=== PATIENT | male | born 1975 | race Caucasian/White ===

== ENCOUNTER 2018-05-06 18:17 | Inpatient (IN) | payer MEDICAID ==
[~2018-05-06] VITALS: Ht 167.6 cm; Wt 98.0 kg
[~2018-05-06 18:17] MED LIST: FURO20TA4 PO; LEVO50TA8 PO; LISI10TA5 PO; NIFE30TA94 PO
[2018-05-06] MEDS ORDERED: ONDANSETRON HCL 4MG/2ML INJ IV STA (19:08)
[2018-05-06] MEDS ORDERED: MORPHINE SULFATE 4 MG/ML CPJ (NOT FOR IM USE) IV STA (19:08)
[2018-05-06] MEDS ORDERED: SODIUM CHLORIDE 0.9% 1000ML BAG (SEPSIS BOLUS) IV ONE (19:15)
[2018-05-06] MEDS ORDERED: CLINDAMYCIN 600 MG in DEXTROSE 5% WATER 50 ML IV ONE (19:15)
[2018-05-06] MEDS ORDERED: CLONIDINE 0.2MG TABLET PO ONE (19:15)
[2018-05-06 19:36] LABS: BASOPHILS % 0.6 % (0.0-2.0); EOSINOPHILS % 2.4 % (0.0-5.0); HEMATOCRIT. 29.2 % (42.0-52.0); HEMOGLOBIN. 9.6 g/dL (14.0-18.0); LYMPHOCYTES % 7.5 % (20.0-50.0); MEAN CORPUSCULAR HEMOGLOBIN 30.7 pg (28.0-32.0); MEAN CORPUSCULAR VOLUME 93.3 fL (80.0-94.0); MEAN PLATELET VOLUME 7.5 fl (7.4-10.4); MONOCYTES % 8.1 % (2.0-8.0); NEUTROPHILS % 81.4 % (40.0-76.0); PLATELET 298 x1000/uL (130-400); RED BLOOD CELL COUNT 3.12 mill/uL (4.7-6.1); RED CELL DISTRIBUTION WIDTH 13.9 % (11.6-14.6)
[2018-05-06 19:42] LABS: CHLORIDE 98 mEq/L (98-107)
[2018-05-06 19:44] LABS: INR 1.2; PROTHROMBIN TIME 11.7 sec (9.1-11.1)
[2018-05-07] MEDS: MORPHINE SULFATE 4 MG/ML CPJ (NOT FOR IM USE) IV PRN ×4 (03:44→18:45)
[2018-05-07 04:00] VITALS: BP 146/64
[2018-05-07 09:14] LABS: BASOPHILS % 0.7 % (0.0-2.0); EOSINOPHILS % 2.6 % (0.0-5.0); HEMATOCRIT. 25.4 % (42.0-52.0); HEMOGLOBIN. 8.4 g/dL (14.0-18.0); LYMPHOCYTES % 9.8 % (20.0-50.0); MEAN CORPUSCULAR HEMOGLOBIN 31.2 pg (28.0-32.0); MEAN CORPUSCULAR VOLUME 94.1 fL (80.0-94.0); MEAN PLATELET VOLUME 7.6 fl (7.4-10.4); MONOCYTES % 7.5 % (2.0-8.0); NEUTROPHILS % 79.4 % (40.0-76.0); PLATELET 240 x1000/uL (130-400); RED BLOOD CELL COUNT 2.69 mill/uL (4.7-6.1); RED CELL DISTRIBUTION WIDTH 13.8 % (11.6-14.6)
[2018-05-07] MEDS ORDERED: DEXTROSE 50% WATER 50ML SYRINGE IV PRN (09:30)
[2018-05-07] MEDS ORDERED: CLONIDINE 0.1MG TABLET PO PRN (10:15)
[2018-05-07] MEDS: INSULIN LISPRO 100 UNITS/ML SUBCUT SCH ×3 (10:32→20:46)
[2018-05-07 12:00] VITALS: BP 153/62
[2018-05-07] MEDS: BLOOD SUGAR DIAGNOSTIC STRIP TEST SCH ×3 (12:20→20:46)
[2018-05-07] MEDS: LEVOTHYROXINE SODIUM 50MCG TABLET PO SCH (12:36)
[2018-05-07] MEDS: NIFEDIPINE XL 30MG TAB PO SCH (12:37)
[2018-05-07] MEDS: SEVELAMER CARBONATE 800 MG TABLET PO SCH ×2 (12:37→18:44)
[2018-05-07 14:59] LABS: CLARITY URINE CLEAR (CLEAR); COLOR URINE YELLOW (YELLOW); KETONES URINE NEGATIVE (NEGATIVE); LEUKOCYTE ESTERASE URINE NEGATIVE (NEGATIVE); NITRITE URINE NEGATIVE (NEGATIVE); OCCULT BLOOD URINE TRACE (NEGATIVE); PROTEIN URINE 4+ (NEGATIVE); SPECIFIC GRAVITY URINE 1.016 (1.005-1.030); UROBILINOGEN URINE 0.2 E.U./dL (0.2-1.0)
[2018-05-07 15:41] LABS: OPIATES URINE SCREEN PRESUMTIVE POSITIVE (NEGATIVE); PHENCYCLIDINE URINE SCREEN NEGATIVE (NEGATIVE)
[2018-05-07 15:42] LABS: *AMPHETAMINES SCREEN URINE NEGATIVE (NEGATIVE); *BARBITURATES SCREEN URINE NEGATIVE (NEGATIVE); *BENZODIAZEPINES SCREEN URINE NEGATIVE (NEGATIVE); *COCAINE SCREEN URINE NEGATIVE (NEGATIVE); CANNABINOID URINE SCREEN NEGATIVE (NEGATIVE); METHADONE URINE SCREEN NEGATIVE (NEGATIVE)
[2018-05-07 16:00] VITALS: BP 149/65
[2018-05-07] MEDS ORDERED: PIPERACILLIN/TAZOBACTAM 3.375GM/50ML PREMIX IV ONE (17:45)
[2018-05-07] MEDS ORDERED: LEVAQUIN XX SCH (18:45)
[2018-05-07 20:00] VITALS: BP 148/62
[2018-05-07] MEDS ORDERED: LEVOFLOXACIN 750MG PREMIX 150 ML IV NR (21:00)
[2018-05-07] MEDS: INSULIN GLARGINE UD 100 UNITS/ML SYR SUBCUT SCH (21:53)
[2018-05-08] VITALS: BP 135/58
[2018-05-08] MEDS: MORPHINE SULFATE 4 MG/ML CPJ (NOT FOR IM USE) IV PRN ×3 (00:22→20:20)
[2018-05-08] MEDS: SODIUM CHLORIDE 0.9% 1,000 ML IV NR (01:44)
[2018-05-08 04:00] VITALS: BP 133/62
[2018-05-08 06:39] LABS: BASOPHILS % 0.3 % (0.0-2.0); EOSINOPHILS % 1.8 % (0.0-5.0); HEMATOCRIT. 25.6 % (42.0-52.0); HEMOGLOBIN. 8.7 g/dL (14.0-18.0); MEAN CORPUSCULAR HEMOGLOBIN 31.5 pg (28.0-32.0); MEAN CORPUSCULAR VOLUME 92.8 fL (80.0-94.0); MEAN PLATELET VOLUME 7.6 fl (7.4-10.4); MONOCYTES % 7.6 % (2.0-8.0); NEUTROPHILS % 83.3 % (40.0-76.0); PLATELET 268 x1000/uL (130-400); RED BLOOD CELL COUNT 2.76 mill/uL (4.7-6.1)
[2018-05-08] MEDS: BLOOD SUGAR DIAGNOSTIC STRIP TEST SCH ×4 (06:53→21:44)
[2018-05-08] MEDS: INSULIN LISPRO 100 UNITS/ML SUBCUT SCH ×4 (07:24→21:00)
[2018-05-08 07:57] LABS: PHOSPHORUS 6.6 mg/dL (2.5-4.9)
[2018-05-08 08:00] VITALS: BP 125/59
[2018-05-08] MEDS: SEVELAMER CARBONATE 800 MG TABLET PO SCH ×3 (08:25→18:44)
[2018-05-08] MEDS: FOLIC ACID/VITAMIN B COMP W-C TABLET PO SCH (08:25)
[2018-05-08] MEDS: LEVOTHYROXINE SODIUM 50MCG TABLET PO SCH (08:25)
[2018-05-08] MEDS: LISINOPRIL 20MG TABLET PO SCH (08:26)
[2018-05-08] MEDS: NIFEDIPINE XL 30MG TAB PO SCH (08:26)
[2018-05-08 12:00] VITALS: BP 123/57
[2018-05-08 16:00] VITALS: BP 136/72
[2018-05-08 20:00] VITALS: BP 126/60
[2018-05-08] MEDS: INSULIN GLARGINE UD 100 UNITS/ML SYR SUBCUT SCH (21:45)
[2018-05-08] MEDS: TEMAZEPAM 15MG CAPSULE PO PRN (21:46)
[2018-05-08] MEDS: EPOETIN ALFA 4000UNITS/ML VIAL SUBCUT SCH (21:47)
[2018-05-09] VITALS: BP 148/71
[2018-05-09] MEDS: MORPHINE SULFATE 4 MG/ML CPJ (NOT FOR IM USE) IV PRN ×3 (01:26→23:05)
[2018-05-09 04:00] VITALS: BP 146/86
[2018-05-09 06:04] LABS: BASOPHILS % 0.4 % (0.0-2.0); HEMATOCRIT. 26.4 % (42.0-52.0); HEMOGLOBIN. 8.8 g/dL (14.0-18.0); LYMPHOCYTES % 7.4 % (20.0-50.0); MEAN CORPUSCULAR VOLUME 92.6 fL (80.0-94.0); MEAN PLATELET VOLUME 7.4 fl (7.4-10.4); MONOCYTES % 9.1 % (2.0-8.0); NEUTROPHILS % 81.1 % (40.0-76.0); PLATELET 255 x1000/uL (130-400); RED BLOOD CELL COUNT 2.85 mill/uL (4.7-6.1); RED CELL DISTRIBUTION WIDTH 13.9 % (11.6-14.6)
[2018-05-09] MEDS: SODIUM CHLORIDE 0.9% 1,000 ML IV NR (06:52)
[2018-05-09] MEDS: BLOOD SUGAR DIAGNOSTIC STRIP TEST SCH ×4 (06:55→21:05)
[2018-05-09] MEDS: INSULIN LISPRO 100 UNITS/ML SUBCUT SCH ×4 (06:55→21:05)
[2018-05-09] MEDS: LEVOTHYROXINE SODIUM 50MCG TABLET PO SCH (07:40)
[2018-05-09 08:00] VITALS: BP 140/63
[2018-05-09] MEDS: SEVELAMER CARBONATE 800 MG TABLET PO SCH ×3 (08:10→18:47)
[2018-05-09] MEDS: LISINOPRIL 20MG TABLET PO SCH (09:00)
[2018-05-09] MEDS: FOLIC ACID/VITAMIN B COMP W-C TABLET PO SCH (09:00)
[2018-05-09] MEDS: NIFEDIPINE XL 30MG TAB PO SCH (09:00)
[2018-05-09] MEDS ORDERED: GENTAMICIN SULF 40MG/ML 2ML VIAL ONE (10:01)
[2018-05-09] MEDS ORDERED: LIDOCAINE HCL 1% 10 MG/ML 10ML VIAL ONE (10:03)
[2018-05-09] MEDS ORDERED: BUPIVACAINE HCL/PF 0.5% (5MG/ML) 10ML ONE (10:03)
[2018-05-09] MEDS ORDERED: BACITRACIN 50,000 UNITS/VIAL ONE ×2 (10:03→10:51)
[2018-05-09] MEDS ORDERED: ONDANSETRON HCL 4MG/2ML INJ IV PRN (10:15)
[2018-05-09] MEDS ORDERED: MEPERIDINE HCL/PF 25MG/ML CPJ IV PRN (10:15)
[2018-05-09] MEDS ORDERED: HYDROMORPHONE HCL/PF 2MG/ML CPJ IV PRN (10:15)
[2018-05-09] MEDS ORDERED: FENTANYL CITRATE/PF 50MCG/ML 2ML VIAL ONE (10:15)
[2018-05-09] MEDS ORDERED: PROPOFOL 200MG/20ML VIAL IV ONE (10:15)
[2018-05-09] MEDS ORDERED: LABETALOL 5MG/ML SYR 20 MG/4 ML SYRINGE IV PRN (10:15)
[2018-05-09] MEDS ORDERED: MIDAZOLAM HCL 2 MG/2 ML VIAL ONE (10:16)
[2018-05-09] MEDS ORDERED: DEXAMETHASONE 4MG/ML 1ML VIAL ONE (10:16)
[2018-05-09] MEDS ORDERED: ONDANSETRON HCL 4MG/2ML INJ ONE (10:16)
[2018-05-09] MEDS ORDERED: LIDOCAINE HCL/PF 1% 10 MG/ML 5ML VIAL ONE ×2 (10:25→11:11)
[2018-05-09] MEDS ORDERED: NORMAL SALINE 0.9% 10 ML SYR ONE (10:51)
[2018-05-09] MEDS ORDERED: EPHEDRINE SULFATE 50MG/ML VIAL ONE (11:11)
[2018-05-09] MEDS ORDERED: CEFAZOLIN SODIUM 1000MG/VIAL ONE (11:11)
[2018-05-09] MEDS ORDERED: SODIUM CHLORIDE 0.9% 10ML VIAL ONE (11:11)
[2018-05-09] MEDS: LEVOFLOXACIN 250MG PREMIX 50 ML IV SCH (14:00)
[2018-05-09 16:00] VITALS: BP 131/61
[2018-05-09] MEDS ORDERED: LEVOFLOXACIN 500MG PREMIX 100 ML IV SCH (18:00)
[2018-05-09 20:00] VITALS: BP 161/88
[2018-05-09] MEDS: INSULIN GLARGINE UD 100 UNITS/ML SYR SUBCUT SCH (21:04)
[2018-05-10] VITALS: BP 151/77
[2018-05-10] MEDS ORDERED: VANCOMYCIN 1500MG in DEXTROSE 5% WATER 250ML IV NR (01:00)
[2018-05-10] MEDS: MORPHINE SULFATE 4 MG/ML CPJ (NOT FOR IM USE) IV PRN ×3 (03:59→20:17)
[2018-05-10 04:00] VITALS: BP 146/65
[2018-05-10] MEDS: LEVOTHYROXINE SODIUM 50MCG TABLET PO SCH (06:50)
[2018-05-10] MEDS: BLOOD SUGAR DIAGNOSTIC STRIP TEST SCH ×4 (06:51→20:34)
[2018-05-10 08:00] VITALS: BP 150/72
[2018-05-10] MEDS: FOLIC ACID/VITAMIN B COMP W-C TABLET PO SCH (08:39)
[2018-05-10] MEDS: NIFEDIPINE XL 30MG TAB PO SCH (08:39)
[2018-05-10] MEDS: SEVELAMER CARBONATE 800 MG TABLET PO SCH ×3 (08:40→18:19)
[2018-05-10] MEDS: INSULIN LISPRO 100 UNITS/ML SUBCUT SCH ×4 (08:44→20:32)
[2018-05-10] MEDS: LISINOPRIL 20MG TABLET PO SCH (08:46)
[2018-05-10 12:00] VITALS: BP 150/64
[2018-05-10 16:00] VITALS: BP 153/75
[2018-05-10 20:00] VITALS: BP 124/69
[2018-05-10] MEDS: EPOETIN ALFA 4000UNITS/ML VIAL SUBCUT SCH (20:14)
[2018-05-10] MEDS: TEMAZEPAM 15MG CAPSULE PO PRN (23:17)
[2018-05-10] MEDS: INSULIN GLARGINE UD 100 UNITS/ML SYR SUBCUT SCH (23:57)
[2018-05-11] VITALS: BP 132/76
[2018-05-11] MEDS: MORPHINE SULFATE 4 MG/ML CPJ (NOT FOR IM USE) IV PRN ×2 (02:51→08:27)
[2018-05-11 03:59] VITALS: BP 130/76
[2018-05-11] MEDS: LEVOTHYROXINE SODIUM 50MCG TABLET PO SCH (06:50)
[2018-05-11] MEDS: BLOOD SUGAR DIAGNOSTIC STRIP TEST SCH ×2 (07:00→12:22)
[2018-05-11 08:00] VITALS: BP 140/72
[2018-05-11] MEDS: NIFEDIPINE XL 30MG TAB PO SCH (08:25)
[2018-05-11] MEDS: SEVELAMER CARBONATE 800 MG TABLET PO SCH (08:26)
[2018-05-11] MEDS: LISINOPRIL 20MG TABLET PO SCH (08:26)
[2018-05-11] MEDS: FOLIC ACID/VITAMIN B COMP W-C TABLET PO SCH (08:26)
[2018-05-11] MEDS: INSULIN LISPRO 100 UNITS/ML SUBCUT SCH ×2 (08:49→13:37)
[2018-05-11] MEDS: LEVOFLOXACIN 250MG PREMIX 50 ML IV SCH (11:53)
[2018-05-11 12:58] VITALS: BP 123/61
[2018-05-11] MEDS ORDERED: VANCOMYCIN 1 G PREMIX 200 ML IV SCH (13:00)
== END 2018-05-11 14:12 | disposition home health service (06) | DRG 710 ==
LOC: ER 18:17 → 5WST 20:39 → EDBEDREQ 20:42 → CANRESERV 22:47 → ENRESERV 22:47 → 7WST 05-07 00:08
PROVIDERS: ADMIT Internal Medicine; ATTEND Internal Medicine
PROC: 5A1D70Z Performance of Urinary Filtration, Intermittent, Less than 6 Hours Per Day (ICD-10-PCS; 2018-05-08)
PROC: 0Y6M0ZB Detachment at Right Foot, Partial 2nd Ray, Open Approach (ICD-10-PCS; 2018-05-09)
PROC: 0Y6M0ZC Detachment at Right Foot, Partial 3rd Ray, Open Approach (ICD-10-PCS; 2018-05-09)
PROC: 0Y6M0ZD Detachment at Right Foot, Partial 4th Ray, Open Approach (ICD-10-PCS; 2018-05-09)
PROC: 0Y9M0ZZ Drainage of Right Foot, Open Approach (ICD-10-PCS; 2018-05-09)
PROC: 0JDQ0ZZ Extraction of Right Foot Subcutaneous Tissue and Fascia, Open Approach (ICD-10-PCS; 2018-05-09)
PROC: 0Y6M0Z9 Detachment at Right Foot, Partial 1st Ray, Open Approach (ICD-10-PCS; principal; 2018-05-09 12:00)
PROC: 5A1D70Z Performance of Urinary Filtration, Intermittent, Less than 6 Hours Per Day (ICD-10-PCS; 2018-05-10)
DX: A41.9 Sepsis, unspecified organism (principal); E43 Unspecified severe protein-calorie malnutrition; A48.0 Gas gangrene; E11.22 Type 2 diabetes mellitus with diabetic chronic kidney disease; E11.40 Type 2 diabetes mellitus with diabetic neuropathy, unspecified; L02.611 Cutaneous abscess of right foot; T25.021A Burn of unspecified degree of right foot, initial encounter; N18.6 End stage renal disease; D63.8 Anemia in other chronic diseases classified elsewhere; E03.9 Hypothyroidism, unspecified; E11.52 Type 2 diabetes mellitus with diabetic peripheral angiopathy with gangrene; E78.5 Hyperlipidemia, unspecified; N25.81 Secondary hyperparathyroidism of renal origin; E11.621 Type 2 diabetes mellitus with foot ulcer; E11.69 Type 2 diabetes mellitus with other specified complication; I12.0 Hypertensive chronic kidney disease with stage 5 chronic kidney disease or end stage renal disease; B95.2 Enterococcus as the cause of diseases classified elsewhere; M86.8X7 Other osteomyelitis, ankle and foot; L97.519 Non-pressure chronic ulcer of other part of right foot with unspecified severity; Z99.2 Dependence on renal dialysis; Z79.4 Long term (current) use of insulin; Z87.891 Personal history of nicotine dependence; Z89.432 Acquired absence of left foot; Z91.19 Patient's noncompliance with other medical treatment and regimen; Z95.820 Peripheral vascular angioplasty status with implants and grafts; Z88.1 Allergy status to other antibiotic agents; X19.XXXA Contact with other heat and hot substances, initial encounter; Y93.89 Activity, other specified; Y92.89 Other specified places as the place of occurrence of the external cause; Y99.8 Other external cause status; Z89.421 Acquired absence of other right toe(s)
CPT/HCPCS: 36415; 71045; 73620; 73630; 80048; 80053; 80202; 80305; 81003; 82962; 83036; 83605; 83735; 84100; 85025; 85610; 85730; 87040; 87070; 87075; 87077; 87186; 87205; 88305; 88311; 93005; 93923; 96365; 96375; 97110; 97116; 97162; 97535; 99285; A4216; J0690; J0885; J1100; J1580; J1815; J1956; J2250; J2270; J2405; J2704; J3010; J3370; J3490; J7030; J7050; J7060

== ENCOUNTER 2018-07-03 11:57 | Inpatient (IN) | payer MEDICARE, MEDICAID ==
[2018-07-03] VITALS (8 sets, daily range): BP systolic 110–180; BP diastolic 53–103
[~2018-07-03] VITALS: Ht 167.6 cm; Wt 103.9 kg
[2018-07-03] MEDS ORDERED: LIDOCAINE HCL 1% 20ML VIAL (Pyxis) INJ ONE ×2 (13:10→13:42)
[2018-07-03] MEDS ORDERED: FENTANYL CITRATE/PF 50MCG/ML 2ML VIAL ONE (13:11)
[2018-07-03] MEDS ORDERED: IODIXANOL 320MG/ML 100 ML BOTTLE IV ONE (13:11)
[2018-07-03] MEDS ORDERED: IOHEXOL-300 100 ML BOTTLE ONE (13:11)
[2018-07-03] MEDS ORDERED: MIDAZOLAM HCL 2 MG/2 ML VIAL ONE (13:11)
[2018-07-03] MEDS ORDERED: ASPIRIN/SOD BICARB/CITRIC ACID 324MG TAB EFF ONE (13:12)
[2018-07-03 13:52] LABS: BASOPHILS % 0.9 % (0.0-2.0); HEMATOCRIT. 30.6 % (42.0-52.0); HEMOGLOBIN. 10.3 g/dL (14.0-18.0); LYMPHOCYTES % 11.7 % (20.0-50.0); MEAN CORPUSCULAR HEMOGLOBIN 32.1 pg (28.0-32.0); MEAN CORPUSCULAR VOLUME 95.1 fL (80.0-94.0); MEAN PLATELET VOLUME 8.2 fl (7.4-10.4); MONOCYTES % 6.3 % (2.0-8.0); NEUTROPHILS % 78.1 % (40.0-76.0); PLATELET 236 x1000/uL (130-400); RED BLOOD CELL COUNT 3.22 mill/uL (4.7-6.1); RED CELL DISTRIBUTION WIDTH 13.6 % (11.6-14.6)
[2018-07-03 14:04] LABS: INR 1.1; PARTIAL THROMBOPLASTIN TIME 33.6 sec (23.4-31.0); PROTHROMBIN TIME 10.6 sec (9.1-11.1)
[2018-07-03] MEDS ORDERED: HEPARIN SODIUM 1,000 UNIT/1ML VIAL IV ONE (14:08)
[2018-07-03] MEDS ORDERED: ONDANSETRON HCL 4MG/2ML INJ IV PRN (15:00)
[2018-07-03] MEDS ORDERED: ACETAMINOPHEN 325MG TABLET PO PRN (15:00)
[2018-07-03] MEDS ORDERED: DEXTROSE 50% WATER 50ML SYRINGE IV PRN (15:00)
[2018-07-03] MEDS ORDERED: MORPHINE SULFATE 4 MG/ML CPJ (NOT FOR IM USE) IV PRN (15:00)
[2018-07-03] MEDS ORDERED: CLOPIDOGREL 75MG TABLET PO NR (15:00)
[2018-07-03] MEDS ORDERED: ATROPINE SULFATE 1MG/10ML SYR IV PRN (15:00)
[2018-07-03] MEDS ORDERED: CLOPIDOGREL 75MG TABLET ONE (15:10)
[2018-07-03] MEDS: BLOOD SUGAR DIAGNOSTIC STRIP TEST SCH ×2 (16:40→21:06)
[2018-07-03] MEDS: INSULIN LISPRO 100 UNITS/ML SUBCUT SCH ×2 (16:40→21:00)
[2018-07-03] MEDS: AMLODIPINE 5MG TABLET PO SCH ×2 (17:07→21:06)
[2018-07-03] MEDS: LISINOPRIL 10MG TABLET PO SCH (21:05)
[2018-07-03] MEDS: MORPHINE SULFATE 4 MG/ML CPJ (NOT FOR IM USE) IV PRN (21:07)
[2018-07-04] VITALS (8 sets, daily range): BP systolic 122–145; BP diastolic 28–79
[2018-07-04] MEDS: MORPHINE SULFATE 4 MG/ML CPJ (NOT FOR IM USE) IV PRN ×2 (01:40→08:18)
[2018-07-04 05:47] LABS: HEMATOCRIT. 27.3 % (42.0-52.0); HEMOGLOBIN. 9.4 g/dL (14.0-18.0); MEAN CORPUSCULAR HEMOGLOBIN 32.9 pg (28.0-32.0); MEAN CORPUSCULAR VOLUME 95.2 fL (80.0-94.0); MEAN PLATELET VOLUME 8.2 fl (7.4-10.4); PLATELET 198 x1000/uL (130-400); RED BLOOD CELL COUNT 2.86 mill/uL (4.7-6.1); RED CELL DISTRIBUTION WIDTH 14.2 % (11.6-14.6)
[2018-07-04 06:51] LABS: PLATELET ESTIMATE NORMAL
[2018-07-04] MEDS: BLOOD SUGAR DIAGNOSTIC STRIP TEST SCH ×2 (06:52→11:51)
[2018-07-04] MEDS: INSULIN LISPRO 100 UNITS/ML SUBCUT SCH (07:20)
[2018-07-04] MEDS: AMLODIPINE 5MG TABLET PO SCH (08:16)
[2018-07-04] MEDS: LISINOPRIL 10MG TABLET PO SCH (08:17)
[2018-07-04] MEDS ORDERED: ASPIRIN 325MG TABLET PO SCH (09:00)
[2018-07-04] MEDS ORDERED: CLOPIDOGREL 75MG TABLET PO SCH (09:00)
== END 2018-07-04 12:40 | disposition home or self-care (01) | DRG 252 ==
LOC: CCL 11:57 → 3WST 11:58
PROVIDERS: ADMIT Specialist; ATTEND Specialist
PROC: 047 Lower Arteries, Dilation (ICD-10-PCS; principal; 2018-07-03)
PROC: B41G1ZZ Fluoroscopy of Left Lower Extremity Arteries using Low Osmolar Contrast (ICD-10-PCS; 2018-07-03)
DX: E11.51 Type 2 diabetes mellitus with diabetic peripheral angiopathy without gangrene (principal); N18.6 End stage renal disease; I12.0 Hypertensive chronic kidney disease with stage 5 chronic kidney disease or end stage renal disease; N25.81 Secondary hyperparathyroidism of renal origin; D64.9 Anemia, unspecified; E03.9 Hypothyroidism, unspecified; E11.21 Type 2 diabetes mellitus with diabetic nephropathy; E11.22 Type 2 diabetes mellitus with diabetic chronic kidney disease; E11.40 Type 2 diabetes mellitus with diabetic neuropathy, unspecified; E66.9 Obesity, unspecified; E78.5 Hyperlipidemia, unspecified; Z79.02 Long term (current) use of antithrombotics/antiplatelets; Z79.4 Long term (current) use of insulin; Z89.432 Acquired absence of left foot; Z99.2 Dependence on renal dialysis; Z68.37 Body mass index [BMI] 37.0-37.9, adult
CPT/HCPCS: 36415; 37230; 37234; 75710; 80048; 82962; 85347; 93005; C1725; C1726; C1769; C1874; C1887; C1893; C1894; J1644; J1815; J2250; J2270; J3010; J3490; Q9967

== ENCOUNTER 2019-01-29 08:16 | Inpatient (IN) | payer MEDICARE, MEDICAID ==
[~2019-01-29] VITALS: Ht 167.6 cm; Wt 107.5 kg
[2019-01-29] VITALS (15 sets, daily range): BP systolic 105–156; BP diastolic 53–83
[2019-01-29] MEDS ORDERED: LIDOCAINE HCL 1% 20ML VIAL (Pyxis) INJ ONE (08:55)
[2019-01-29] MEDS ORDERED: ASPIRIN/SOD BICARB/CITRIC ACID 324MG TAB EFF ONE (08:55)
[2019-01-29] MEDS ORDERED: IODIXANOL 320MG/ML 100 ML BOTTLE IV ONE ×2 (08:55→10:37)
[2019-01-29] MEDS ORDERED: FENTANYL CITRATE/PF 50MCG/ML 2ML VIAL ONE ×2 (09:20→10:10)
[2019-01-29] MEDS ORDERED: MIDAZOLAM HCL 2 MG/2 ML VIAL ONE ×2 (09:20→10:10)
[2019-01-29] MEDS ORDERED: SEVE800T8 PO (09:25)
[2019-01-29] MEDS ORDERED: CLOP75TA4 PO (09:25)
[2019-01-29] MEDS ORDERED: ATOR10TA PO (09:25)
[2019-01-29] MEDS ORDERED: ASPI-1158 PO (09:25)
[2019-01-29] MEDS ORDERED: INSU100I28 SQ (09:25)
[2019-01-29] MEDS ORDERED: INSHUMSS SUBCUT (09:27)
[2019-01-29 09:57] LABS: INR 1.1; PARTIAL THROMBOPLASTIN TIME 31.1 sec (23.4-31.0)
[2019-01-29] MEDS ORDERED: IOHEXOL-300 100 ML BOTTLE ONE (10:01)
[2019-01-29 10:07] LABS: HEMATOCRIT 35.4 % (42.0-52.0); MEAN CORPUSCULAR HEMOGLOBIN 32.1 pg (28.0-32.0); MEAN CORPUSCULAR VOLUME 95.1 fL (80.0-94.0); PLATELET 213 x1000/uL (130-400); RED BLOOD CELL COUNT 3.73 mill/uL (4.7-6.1); RED CELL DISTRIBUTION WIDTH 16.1 % (11.6-14.6)
[2019-01-29] MEDS ORDERED: CLOPIDOGREL 75MG TABLET ONE (10:38)
[2019-01-29] MEDS ORDERED: CLOPIDOGREL 75MG TABLET PO NR (11:00)
[2019-01-29] MEDS ORDERED: DEXTROSE 50% WATER 50ML SYRINGE IV PRN (11:00)
[2019-01-29] MEDS ORDERED: ACETAMINOPHEN 325MG TABLET PO PRN (11:00)
[2019-01-29] MEDS ORDERED: ATROPINE SULFATE 1MG/10ML SYR IV PRN (11:00)
[2019-01-29] MEDS ORDERED: ONDANSETRON HCL 4MG/2ML INJ IV PRN (11:00)
[2019-01-29] MEDS ORDERED: HEPARIN SODIUM 1,000 UNIT/1ML VIAL IV ONE (11:28)
[2019-01-29] MEDS: MORPHINE SULFATE 2 MG/ML CPJ (NOT FOR IM USE) IV PRN ×3 (11:48→20:51)
[2019-01-29] MEDS: BLOOD SUGAR DIAGNOSTIC STRIP TEST SCH ×3 (12:01→20:42)
[2019-01-29] MEDS: INSULIN LISPRO 100 UNITS/ML SUBCUT SCH ×3 (12:20→20:42)
[2019-01-29] MEDS: NIFEDIPINE XL 30MG TAB PO SCH (20:50)
[2019-01-29] MEDS ORDERED: ATORVASTATIN CALCIUM 20MG TABLET PO SCH (21:00)
[2019-01-30] VITALS (8 sets, daily range): BP systolic 104–138; BP diastolic 56–78
[2019-01-30] MEDS: INSULIN LISPRO 100 UNITS/ML SUBCUT SCH (06:14)
[2019-01-30] MEDS: BLOOD SUGAR DIAGNOSTIC STRIP TEST SCH (06:14)
[2019-01-30 07:10] LABS: BASOPHILS % 0.7 % (0.0-2.0); EOSINOPHILS % 4.4 % (0.0-5.0); HEMATOCRIT. 33.9 % (42.0-52.0); HEMOGLOBIN. 11.5 g/dL (14.0-18.0); LYMPHOCYTES % 8.8 % (20.0-50.0); MEAN CORPUSCULAR HEMOGLOBIN 32.2 pg (28.0-32.0); MEAN PLATELET VOLUME 8.2 fl (7.4-10.4); MONOCYTES % 10.3 % (2.0-8.0); NEUTROPHILS % 75.8 % (40.0-76.0); PLATELET 177 x1000/uL (130-400); RED BLOOD CELL COUNT 3.57 mill/uL (4.7-6.1); RED CELL DISTRIBUTION WIDTH 15.8 % (11.6-14.6)
[2019-01-30] MEDS ORDERED: MORPHINE SULFATE 2 MG/ML CPJ (NOT FOR IM USE) IV ONE (07:31)
[2019-01-30] MEDS: NIFEDIPINE XL 30MG TAB PO SCH (07:34)
[2019-01-30] MEDS: MORPHINE SULFATE 2 MG/ML CPJ (NOT FOR IM USE) IV PRN (07:35)
[2019-01-30 08:11] LABS: PHOSPHORUS 8.8 mg/dL (2.5-4.9)
[2019-01-30] MEDS ORDERED: CLOPIDOGREL 75MG TABLET PO SCH (09:00)
[2019-01-30] MEDS ORDERED: ASPIRIN 325MG TABLET PO SCH (09:00)
[2019-01-30] MEDS ORDERED: ASPI-1158 PO (10:16)
== END 2019-01-30 11:37 | disposition home or self-care (01) | DRG 252 ==
LOC: CCL 08:16 → 3WST 08:17
PROVIDERS: ADMIT Specialist; ATTEND Specialist
PROC: 047M34Z Dilation of Right Popliteal Artery with Drug-eluting Intraluminal Device, Percutaneous Approach (ICD-10-PCS; principal; 2019-01-29)
PROC: B41F1ZZ Fluoroscopy of Right Lower Extremity Arteries using Low Osmolar Contrast (ICD-10-PCS; 2019-01-29)
DX: T82.856A Stenosis of peripheral vascular stent, initial encounter (principal); N18.6 End stage renal disease; N25.81 Secondary hyperparathyroidism of renal origin; I13.11 Hypertensive heart and chronic kidney disease without heart failure, with stage 5 chronic kidney disease, or end stage renal disease; E11.51 Type 2 diabetes mellitus with diabetic peripheral angiopathy without gangrene; E11.22 Type 2 diabetes mellitus with diabetic chronic kidney disease; D64.9 Anemia, unspecified; E03.9 Hypothyroidism, unspecified; E66.9 Obesity, unspecified; E78.00 Pure hypercholesterolemia, unspecified; Y83.8 Other surgical procedures as the cause of abnormal reaction of the patient, or of later complication, without mention of misadventure at the time of the procedure; Y92.89 Other specified places as the place of occurrence of the external cause; Z89.432 Acquired absence of left foot; Z89.431 Acquired absence of right foot; Z99.2 Dependence on renal dialysis; Z68.38 Body mass index [BMI] 38.0-38.9, adult
CPT/HCPCS: 36415; 37230; 75716; 80048; 82962; 84100; 85027; 85347; 93005; C1725; C1769; C1874; C1893; C1894; J1644; J1815; J2250; J2270; J3010; J3490; Q9967

== ENCOUNTER 2019-02-26 08:51 | Inpatient (IN) | payer MEDICARE, MEDICAID ==
[~2019-02-26] VITALS: Ht 167.6 cm; Wt 106.6 kg
[~2019-02-26 08:51] MED LIST changes: +ASPI-1158 PO; +ATOR10TA PO; +CLOP75TA4 PO; +HEPARIN SODIUM 1,000 UNIT/1ML VIAL IV ONE; +INSHUMSS SUBCUT; +INSU100I28 SQ; +SEVE800T8 PO
[2019-02-26] MEDS ORDERED: HYDR-4005 MT (09:46)
[2019-02-26] MEDS ORDERED: CALC667C MT (09:46)
[2019-02-26 10:00] LABS: HEMATOCRIT 37.5 % (42.0-52.0); HEMOGLOBIN 12.9 g/dL (14.0-18.0); MEAN CORPUSCULAR HEMOGLOBIN 33.1 pg (28.0-32.0); MEAN CORPUSCULAR VOLUME 96.5 fL (80.0-94.0); PLATELET 226 x1000/uL (130-400); RED BLOOD CELL COUNT 3.89 mill/uL (4.7-6.1); RED CELL DISTRIBUTION WIDTH 15.2 % (11.6-14.6)
[2019-02-26 10:09] LABS: INR 1.1; PARTIAL THROMBOPLASTIN TIME 33.2 sec (23.4-31.0)
[2019-02-26] MEDS ORDERED: ASPIRIN/SOD BICARB/CITRIC ACID 324MG TAB EFF ONE (10:11)
[2019-02-26] MEDS ORDERED: IODIXANOL 320MG/ML 100 ML BOTTLE IV ONE (10:14)
[2019-02-26] MEDS ORDERED: LIDOCAINE HCL 1% 20ML VIAL (Pyxis) INJ ONE ×2 (10:14→11:54)
[2019-02-26] MEDS ORDERED: FENTANYL CITRATE/PF 50MCG/ML 2ML VIAL ONE ×2 (10:33→11:53)
[2019-02-26] MEDS ORDERED: MIDAZOLAM HCL 2 MG/2 ML VIAL ONE (10:33)
[2019-02-26] MEDS ORDERED: IOHEXOL-300 100 ML BOTTLE ONE (11:04)
[2019-02-26] MEDS ORDERED: CLOPIDOGREL 75MG TABLET ONE (12:09)
[2019-02-26] MEDS ORDERED: ACETAMINOPHEN 325MG TABLET PO PRN (12:15)
[2019-02-26] MEDS ORDERED: ATROPINE SULFATE 1MG/10ML SYR IV PRN (12:15)
[2019-02-26] MEDS ORDERED: DEXTROSE 50% WATER 50ML SYRINGE IV PRN (12:15)
[2019-02-26] MEDS ORDERED: ONDANSETRON HCL 4MG/2ML INJ IV PRN (12:15)
[2019-02-26] MEDS ORDERED: MORPHINE SULFATE 2 MG/ML CPJ (NOT FOR IM USE) IV PRN (12:15)
[2019-02-26 12:35] VITALS: BP 129/77
[2019-02-26] MEDS: INSULIN LISPRO 100 UNITS/ML SUBCUT SCH ×3 (12:59→21:00)
[2019-02-26] MEDS: BLOOD SUGAR DIAGNOSTIC STRIP TEST SCH ×3 (12:59→21:19)
[2019-02-26] MEDS ORDERED: CLOPIDOGREL 75MG TABLET PO NR (13:15)
[2019-02-26 14:08] VITALS: BP_SYST 120; BP_SYST 132; BP_DIAS 63; BP_DIAS 69
[2019-02-26] MEDS ORDERED: PROTAMINE SULFATE 10MG/ML VIAL 5ML IV ONE (14:39)
[2019-02-26] MEDS ORDERED: PROTAMINE SULFATE 10MG/ML VIAL 25ML IV NR (14:45)
[2019-02-26 16:15] VITALS: BP 155/83
[2019-02-26] MEDS ORDERED: HYDRALAZINE 20MG/ML VIAL IV PRN (16:30)
[2019-02-26] MEDS: SEVELAMER CARBONATE 800 MG TABLET PO SCH (16:47)
[2019-02-26] MEDS: NIFEDIPINE XL 30MG TAB PO SCH (16:47)
[2019-02-26] MEDS: MORPHINE SULFATE 2 MG/ML CPJ (NOT FOR IM USE) IV PRN (16:48)
[2019-02-26 18:15] VITALS: BP 116/66
[2019-02-26 20:00] VITALS: BP 140/70
[2019-02-26] MEDS ORDERED: ATORVASTATIN CALCIUM 10MG TABLET PO SCH (21:00)
[2019-02-26 22:00] VITALS: BP 157/70
[2019-02-27] VITALS (8 sets, daily range): BP systolic 111–132; BP diastolic 66–83
[2019-02-27] MEDS: MORPHINE SULFATE 2 MG/ML CPJ (NOT FOR IM USE) IV PRN (03:33)
[2019-02-27] MEDS ORDERED: LEVOTHYROXINE SODIUM 75MCG TABLET PO SCH (06:50)
[2019-02-27] MEDS: BLOOD SUGAR DIAGNOSTIC STRIP TEST SCH ×2 (07:00→11:35)
[2019-02-27] MEDS: INSULIN LISPRO 100 UNITS/ML SUBCUT SCH (07:01)
[2019-02-27 07:04] LABS: HEMOGLOBIN. 11.7 g/dL (14.0-18.0); MEAN CORPUSCULAR HEMOGLOBIN 32.4 pg (28.0-32.0); MEAN CORPUSCULAR VOLUME 96.9 fL (80.0-94.0); MEAN PLATELET VOLUME 8.4 fl (7.4-10.4); PLATELET 190 x1000/uL (130-400); RED BLOOD CELL COUNT 3.62 mill/uL (4.7-6.1); RED CELL DISTRIBUTION WIDTH 14.8 % (11.6-14.6)
[2019-02-27] MEDS: SEVELAMER CARBONATE 800 MG TABLET PO SCH (08:11)
[2019-02-27] MEDS ORDERED: ASPIRIN 325MG TABLET PO SCH (09:00)
[2019-02-27] MEDS ORDERED: FOLIC ACID/VITAMIN B COMP W-C TABLET PO SCH (09:00)
[2019-02-27] MEDS: NIFEDIPINE XL 30MG TAB PO SCH (09:00)
[2019-02-27] MEDS ORDERED: CLOPIDOGREL 75MG TABLET PO SCH (09:00)
[2019-02-27 10:33] LABS: PLATELET ESTIMATE NORMAL
== END 2019-02-27 12:25 | disposition home or self-care (01) | DRG 270 ==
LOC: CCL 08:51 → 3WST 08:52
PROVIDERS: ADMIT Specialist; ATTEND Specialist
PROC: 04CP3ZZ Extirpation of Matter from Right Anterior Tibial Artery, Percutaneous Approach (ICD-10-PCS; principal; 2019-02-26)
PROC: 047P34Z Dilation of Right Anterior Tibial Artery with Drug-eluting Intraluminal Device, Percutaneous Approach (ICD-10-PCS; 2019-02-26)
PROC: 047M3ZZ Dilation of Right Popliteal Artery, Percutaneous Approach (ICD-10-PCS; 2019-02-26)
PROC: B41F1ZZ Fluoroscopy of Right Lower Extremity Arteries using Low Osmolar Contrast (ICD-10-PCS; 2019-02-26)
DX: T82.856A Stenosis of peripheral vascular stent, initial encounter (principal); N18.6 End stage renal disease; I12.0 Hypertensive chronic kidney disease with stage 5 chronic kidney disease or end stage renal disease; N25.81 Secondary hyperparathyroidism of renal origin; E11.319 Type 2 diabetes mellitus with unspecified diabetic retinopathy without macular edema; E11.40 Type 2 diabetes mellitus with diabetic neuropathy, unspecified; E11.51 Type 2 diabetes mellitus with diabetic peripheral angiopathy without gangrene; E11.21 Type 2 diabetes mellitus with diabetic nephropathy; D64.9 Anemia, unspecified; E03.9 Hypothyroidism, unspecified; E11.22 Type 2 diabetes mellitus with diabetic chronic kidney disease; E66.9 Obesity, unspecified; E78.00 Pure hypercholesterolemia, unspecified; I70.209 Unspecified atherosclerosis of native arteries of extremities, unspecified extremity; Y83.8 Other surgical procedures as the cause of abnormal reaction of the patient, or of later complication, without mention of misadventure at the time of the procedure; Y92.89 Other specified places as the place of occurrence of the external cause; Z99.2 Dependence on renal dialysis; Z89.431 Acquired absence of right foot; Z79.899 Other long term (current) drug therapy; Z89.432 Acquired absence of left foot
CPT/HCPCS: 36415; 37231; 75710; 80048; 82962; 85027; 85347; 93005; C1725; C1726; C1760; C1769; C1874; C1887; C1893; C1894; J1644; J2250; J2270; J2720; J3010; J3490; Q9967

== ENCOUNTER → 2020-02-04 | Outpatient (CLI) | payer MEDICARE ==
[~2020-02-04] MED LIST changes: +CALC667C MT; +FENTANYL CITRATE/PF 50MCG/ML 2ML VIAL ONE; -HEPARIN SODIUM 1,000 UNIT/1ML VIAL IV ONE; +HYDR-4005 MT; +LIDOCAINE HCL 1% 20ML VIAL (Pyxis) INJ ONE; +MIDAZOLAM HCL 2 MG/2 ML VIAL ONE
== END | disposition home or self-care (01) ==
LOC: LAB 11:03
PROVIDERS: ATTEND Specialist
DX: R05 Cough (principal); Z20.828 Contact with and (suspected) exposure to other viral communicable diseases
CPT/HCPCS: C9803; U0003

== ENCOUNTER 2022-01-05 06:47 | Inpatient (IN) | payer MEDICARE, MEDICAID ==
[~2022-01-05] VITALS: Ht 167.6 cm; Wt 113.4 kg
[2022-01-05] VITALS (12 sets, daily range): BP systolic 79–168; BP diastolic 34–96
[~2022-01-05 06:47] MED LIST changes: -ASPI-1158 PO; +ASPI-1406 PO; +CLOP-31 PO; -CLOP75TA4 PO; -FENTANYL CITRATE/PF 50MCG/ML 2ML VIAL ONE; -FURO20TA4 PO; -HYDR-4005 MT; -LIDOCAINE HCL 1% 20ML VIAL (Pyxis) INJ ONE; -LISI10TA5 PO; -MIDAZOLAM HCL 2 MG/2 ML VIAL ONE; -NIFE30TA94 PO
[2022-01-05 07:45] LABS: HEMATOCRIT. 35.8 % (42.0-52.0); HEMOGLOBIN. 11.5 g/dL (14.0-18.0); LYMPHOCYTES % 11.1 % (20.0-50.0); MEAN CORPUSCULAR HEMOGLOBIN 28.8 pg (28.0-32.0); MEAN CORPUSCULAR VOLUME 89.6 fL (80.0-94.0); MEAN PLATELET VOLUME 8.4 fl (7.4-10.4); MONOCYTES % 10.1 % (2.0-8.0); NEUTROPHILS % 72.8 % (40.0-76.0); PLATELET 205 x1000/uL (130-400); RED CELL DISTRIBUTION WIDTH 16.3 % (11.6-14.6)
[2022-01-05] MEDS ORDERED: NIFE-33 PO (07:50)
[2022-01-05] MEDS ORDERED: FURO-152 PO (07:50)
[2022-01-05] MEDS ORDERED: NEBI5TAB3 PO (07:50)
[2022-01-05 07:55] LABS: INR 1.2; PARTIAL THROMBOPLASTIN TIME 33.2 sec (23.4-31.0); PROTHROMBIN TIME 12.6 sec (9.6-11.0)
[2022-01-05] MEDS ORDERED: CEFAZOLIN 1000MG PREMIX 100 ML IV ONE (09:06)
[2022-01-05] MEDS ORDERED: LIDOCAINE HCL 1% 10 MG/ML 10ML VIAL ONE ×2 (09:19→09:35)
[2022-01-05] MEDS ORDERED: GENTAMICIN/NS IRRIGATION 500 ML IR ONE (09:19)
[2022-01-05] MEDS ORDERED: GENTAMICIN SULF 40MG/ML 2ML VIAL ONE (09:19)
[2022-01-05] MEDS ORDERED: IODIXANOL 320MG/ML 100 ML BOTTLE IV ONE (09:33)
[2022-01-05] MEDS ORDERED: FENTANYL CITRATE/PF 50MCG/ML 2ML VIAL ONE (09:35)
[2022-01-05] MEDS ORDERED: PROPOFOL 200MG/20ML VIAL IV ONE (09:36)
[2022-01-05] MEDS ORDERED: MIDAZOLAM HCL 2 MG/2 ML VIAL ONE (09:37)
[2022-01-05] MEDS ORDERED: ONDANSETRON HCL 4MG/2ML INJ IV PRN (10:00)
[2022-01-05] MEDS ORDERED: MEPERIDINE HCL/PF 25MG/ML CPJ IV PRN (10:00)
[2022-01-05] MEDS ORDERED: HYDROMORPHONE HCL/PF 2MG/ML CPJ IV PRN (10:00)
[2022-01-05] MEDS ORDERED: LABETALOL 5MG/ML SYR 20 MG/4 ML SYRINGE IV PRN (10:00)
[2022-01-05] MEDS ORDERED: LIDOCAINE HCL/PF 1% 10 MG/ML 5ML VIAL ONE (10:14)
[2022-01-05] MEDS ORDERED: LIDOCAINE HCL/PF 2% 20MG/ML 5 ML/VIAL ONE (11:16)
[2022-01-05 16:53] LABS: HEPATITIS B SURFACE ANTIGEN NEGATIVE
[2022-01-05] MEDS: HYDROCODONE/ACETAMINOPHEN 5/325MG TABLET PO PRN (18:48)
[2022-01-05] MEDS ORDERED: DEXTROSE 50% WATER 50ML SYRINGE IV PRN (20:30)
[2022-01-05] MEDS: BLOOD SUGAR DIAGNOSTIC STRIP TEST SCH (20:46)
[2022-01-05] MEDS: INSULIN LISPRO 100 UNITS/ML SUBCUT SCH (20:56)
[2022-01-05] MEDS ORDERED: ATORVASTATIN CALCIUM 20MG TABLET PO SCH (21:00)
[2022-01-05] MEDS ORDERED: VANCOMYCIN 1G PREMIX 200 ML IV NR (21:00)
[2022-01-05] MEDS ORDERED: VANCOMYCIN 1GM PMX (XELLIA) 200 ML IV NR (22:00)
[2022-01-06] VITALS (8 sets, daily range): BP systolic 116–153; BP diastolic 20–86
[2022-01-06] MEDS: HYDROCODONE/ACETAMINOPHEN 5/325MG TABLET PO PRN (06:34)
[2022-01-06 07:24] LABS: BASOPHILS % 0.6 % (0.0-2.0); EOSINOPHILS % 4.6 % (0.0-5.0); HEMATOCRIT. 32.7 % (42.0-52.0); HEMOGLOBIN. 10.6 g/dL (14.0-18.0); LYMPHOCYTES % 7.2 % (20.0-50.0); MEAN CORPUSCULAR HEMOGLOBIN 29.2 pg (28.0-32.0); MEAN CORPUSCULAR VOLUME 90.1 fL (80.0-94.0); MEAN PLATELET VOLUME 8.8 fl (7.4-10.4); MONOCYTES % 11.8 % (2.0-8.0); NEUTROPHILS % 75.8 % (40.0-76.0); PLATELET 176 x1000/uL (130-400); RED BLOOD CELL COUNT 3.63 mill/uL (4.7-6.1); RED CELL DISTRIBUTION WIDTH 16.4 % (11.6-14.6)
[2022-01-06] MEDS: BLOOD SUGAR DIAGNOSTIC STRIP TEST SCH ×2 (07:34→11:50)
[2022-01-06] MEDS ORDERED: NIFEDIPINE XL 30MG TAB PO SCH (09:00)
[2022-01-06] MEDS ORDERED: ASPIRIN 81MG EC TABLET PO SCH (09:00)
[2022-01-06] MEDS: INSULIN LISPRO 100 UNITS/ML SUBCUT SCH ×2 (09:01→12:20)
[2022-01-06] MEDS ORDERED: NALOXONE HCL 0.4MG/ML VIAL IV PRN (13:00)
== END 2022-01-06 17:15 | disposition home or self-care (01) | DRG 260 ==
LOC: CCL 06:47 → 3WST 06:48
PROVIDERS: ADMIT Internal Medicine Clinical Cardiac Electrophysiology; ATTEND Internal Medicine Clinical Cardiac Electrophysiology
PROC: 5A1D70Z Performance of Urinary Filtration, Intermittent, Less than 6 Hours Per Day (ICD-10-PCS; principal; 2022-01-05)
PROC: 02WA3MZ Revision of Cardiac Lead in Heart, Percutaneous Approach (ICD-10-PCS; 2022-01-05)
PROC: B5171ZA Fluoroscopy of Left Subclavian Vein using Low Osmolar Contrast, Guidance (ICD-10-PCS; 2022-01-05)
DX: T82.120A Displacement of cardiac electrode, initial encounter (principal); N18.6 End stage renal disease; I12.0 Hypertensive chronic kidney disease with stage 5 chronic kidney disease or end stage renal disease; N25.81 Secondary hyperparathyroidism of renal origin; Z68.41 Body mass index [BMI] 40.0-44.9, adult; I44.2 Atrioventricular block, complete; E11.22 Type 2 diabetes mellitus with diabetic chronic kidney disease; E11.40 Type 2 diabetes mellitus with diabetic neuropathy, unspecified; Z99.2 Dependence on renal dialysis; E03.9 Hypothyroidism, unspecified; D64.9 Anemia, unspecified; I70.203 Unspecified atherosclerosis of native arteries of extremities, bilateral legs; E11.319 Type 2 diabetes mellitus with unspecified diabetic retinopathy without macular edema; Z20.822 Contact with and (suspected) exposure to COVID-19; E78.5 Hyperlipidemia, unspecified; Y83.1 Surgical operation with implant of artificial internal device as the cause of abnormal reaction of the patient, or of later complication, without mention of misadventure at the time of the procedure; I25.10 Atherosclerotic heart disease of native coronary artery without angina pectoris; E66.01 Morbid (severe) obesity due to excess calories; E87.5 Hyperkalemia; Z79.899 Other long term (current) drug therapy; Z95.1 Presence of aortocoronary bypass graft; Z79.82 Long term (current) use of aspirin; Z79.02 Long term (current) use of antithrombotics/antiplatelets; Z89.422 Acquired absence of other left toe(s); Z89.421 Acquired absence of other right toe(s); Z98.62 Peripheral vascular angioplasty status; Y92.89 Other specified places as the place of occurrence of the external cause
CPT/HCPCS: 33216; 33234; 36415; 71045; 75820; 80048; 82962; 83036; 85025; 86705; 86709; 86803; 87340; 87426; 93005; A4565; C1769; C1893; C1898; C9803; J0690; J1580; J1815; J2250; J2704; J3010; J3370; J3490; Q9967

== ENCOUNTER 2022-07-30 09:18 | Inpatient (IN) | payer MEDICARE, MEDICAID ==
[~2022-07-30] VITALS: Ht 167.6 cm; Wt 114.9 kg
[~2022-07-30 09:18] MED LIST changes: +FURO-152 PO; +NEBI5TAB3 PO; +NIFE-33 PO
[2022-07-30 11:54] LABS: BASOPHILS % 0.9 % (0.0-2.0); CHLORIDE 96 mEq/L (98-107); EOSINOPHILS % 3.6 % (0.0-5.0); LYMPHOCYTES % 10.9 % (20.0-50.0); MEAN CORPUSCULAR HEMOGLOBIN 32.7 pg (28.0-32.0); MEAN CORPUSCULAR VOLUME 97.9 fL (80.0-94.0); MEAN PLATELET VOLUME 8.9 fl (7.4-10.4); MONOCYTES % 7.2 % (2.0-8.0); NEUTROPHILS % 77.4 % (40.0-76.0); PLATELET 173 x1000/uL (130-400); RED BLOOD CELL COUNT 2.13 mill/uL (4.7-6.1); RED CELL DISTRIBUTION WIDTH 15.8 % (11.6-14.6)
[2022-07-30 11:58] LABS: HEMATOCRIT. 20.8 % (42.0-52.0)
[2022-07-30 16:30] VITALS: BP 93/45
[2022-07-30 17:00] VITALS: BP 93/45
[2022-07-30] MEDS ORDERED: ZOLPIDEM TARTRATE 5MG TABLET PO PRN (17:30)
[2022-07-30] MEDS ORDERED: DIPHENHYDRAMINE 50MG/ML VIAL IV PRN (17:30)
[2022-07-30] MEDS ORDERED: ACETAMINOPHEN 325MG TABLET PO PRN ×2 (17:30)
[2022-07-30] MEDS ORDERED: CLONIDINE 0.1MG TABLET PO PRN (17:30)
[2022-07-30] MEDS ORDERED: ONDANSETRON HCL 4MG/2ML INJ IV PRN (17:30)
[2022-07-30 20:00] VITALS: BP 107/53
[2022-07-30] MEDS: SODIUM CHLORIDE 0.9% INJ 3ML FLUSH IVF SCH (21:38)
[2022-07-30] MEDS: PANTOPRAZOLE 40MG DR TABLET PO SCH (21:38)
[2022-07-30] MEDS: ATORVASTATIN CALCIUM 20MG TABLET PO SCH (21:38)
[2022-07-30 23:06] VITALS: BP 95/60
[2022-07-30 23:21] VITALS: BP 111/70
[2022-07-31] VITALS (18 sets, daily range): BP systolic 89–130; BP diastolic 44–70
[2022-07-31] MEDS: PANTOPRAZOLE 40MG DR TABLET PO SCH ×2 (06:08→23:01)
[2022-07-31] MEDS: SODIUM CHLORIDE 0.9% INJ 3ML FLUSH IVF SCH ×3 (06:08→23:02)
[2022-07-31 06:27] LABS: BASOPHILS % 0.9 % (0.0-2.0); HEMATOCRIT. 25.1 % (42.0-52.0); HEMOGLOBIN. 8.5 g/dL (14.0-18.0); MEAN CORPUSCULAR HEMOGLOBIN 32.7 pg (28.0-32.0); MEAN CORPUSCULAR VOLUME 96.4 fL (80.0-94.0); MONOCYTES % 10.9 % (2.0-8.0); NEUTROPHILS % 72.2 % (40.0-76.0); PLATELET 134 x1000/uL (130-400); RED CELL DISTRIBUTION WIDTH 15.5 % (11.6-14.6)
[2022-07-31] MEDS: NIFEDIPINE XL 30MG TAB PO SCH (08:45)
[2022-07-31] MEDS ORDERED: DEXTROSE 50% WATER 50ML SYRINGE IV PRN (17:15)
[2022-07-31] MEDS: INSULIN LISPRO 100 UNITS/ML SUBCUT SCH ×2 (17:40→21:00)
[2022-07-31] MEDS: SEVELAMER CARBONATE 800 MG TABLET PO SCH (17:53)
[2022-07-31] MEDS: BLOOD SUGAR DIAGNOSTIC STRIP TEST SCH ×2 (17:54→21:00)
[2022-07-31 21:26] LABS: HEPATITIS B SURFACE ANTIGEN NEGATIVE
[2022-07-31] MEDS: ATORVASTATIN CALCIUM 20MG TABLET PO SCH (23:00)
[2022-08-01] VITALS: BP 129/45
[2022-08-01 04:00] VITALS: BP 129/49
[2022-08-01] MEDS: PANTOPRAZOLE 40MG DR TABLET PO SCH ×2 (06:31→20:32)
[2022-08-01] MEDS: BLOOD SUGAR DIAGNOSTIC STRIP TEST SCH ×5 (06:32→20:32)
[2022-08-01] MEDS: SODIUM CHLORIDE 0.9% INJ 3ML FLUSH IVF SCH ×3 (06:32→20:37)
[2022-08-01] MEDS: INSULIN LISPRO 100 UNITS/ML SUBCUT SCH ×4 (06:32→20:38)
[2022-08-01 06:43] LABS: BASOPHILS % 0.8 % (0.0-2.0); EOSINOPHILS % 4.2 % (0.0-5.0); HEMATOCRIT. 25.4 % (42.0-52.0); HEMOGLOBIN. 8.7 g/dL (14.0-18.0); LYMPHOCYTES % 8.3 % (20.0-50.0); MEAN CORPUSCULAR VOLUME 96.7 fL (80.0-94.0); MEAN PLATELET VOLUME 9.1 fl (7.4-10.4); MONOCYTES % 10.4 % (2.0-8.0); NEUTROPHILS % 76.3 % (40.0-76.0); PLATELET 137 x1000/uL (130-400); RED BLOOD CELL COUNT 2.63 mill/uL (4.7-6.1); RED CELL DISTRIBUTION WIDTH 15.1 % (11.6-14.6)
[2022-08-01 08:03] VITALS: BP 114/55
[2022-08-01] MEDS: NIFEDIPINE XL 30MG TAB PO SCH (08:47)
[2022-08-01] MEDS: SEVELAMER CARBONATE 800 MG TABLET PO SCH ×3 (08:48→17:51)
[2022-08-01] MEDS: CALCITRIOL 0.25MCG CAPSULE PO SCH (08:48)
[2022-08-01 12:00] VITALS: BP 130/66
[2022-08-01 14:12] LABS: TOTAL IRON BINDING CAPACITY 215 ug/dL (250-450)
[2022-08-01 14:14] LABS: INR 1.1; PROTHROMBIN TIME 12.1 sec (9.6-11.0)
[2022-08-01 14:34] LABS: VITAMIN B12 SERUM 521 pg/mL (211-911)
[2022-08-01 14:41] LABS: FERRITIN 244 ng/mL (22-322)
[2022-08-01 16:00] VITALS: BP 130/68
[2022-08-01 18:52] LABS: INR 1.2; PROTHROMBIN TIME 12.4 sec (9.6-11.0)
[2022-08-01 20:00] VITALS: BP 126/39
[2022-08-01] MEDS: ATORVASTATIN CALCIUM 20MG TABLET PO SCH (20:32)
[2022-08-02] VITALS (10 sets, daily range): BP systolic 104–165; BP diastolic 31–85
[2022-08-02 03:21] LABS: BASOPHILS % 0.7 % (0.0-2.0); EOSINOPHILS % 4.7 % (0.0-5.0); HEMATOCRIT. 25.7 % (42.0-52.0); HEMOGLOBIN. 8.8 g/dL (14.0-18.0); LYMPHOCYTES % 10.1 % (20.0-50.0); MEAN CORPUSCULAR HEMOGLOBIN 33.1 pg (28.0-32.0); MEAN CORPUSCULAR VOLUME 96.3 fL (80.0-94.0); MEAN PLATELET VOLUME 8.7 fl (7.4-10.4); MONOCYTES % 9.2 % (2.0-8.0); NEUTROPHILS % 75.3 % (40.0-76.0); PLATELET 144 x1000/uL (130-400); RED BLOOD CELL COUNT 2.67 mill/uL (4.7-6.1); RED CELL DISTRIBUTION WIDTH 14.8 % (11.6-14.6)
[2022-08-02] MEDS: PANTOPRAZOLE 40MG DR TABLET PO SCH (04:55)
[2022-08-02] MEDS: BLOOD SUGAR DIAGNOSTIC STRIP TEST SCH ×3 (04:56→18:03)
[2022-08-02] MEDS: INSULIN LISPRO 100 UNITS/ML SUBCUT SCH ×3 (05:26→18:16)
[2022-08-02] MEDS: SEVELAMER CARBONATE 800 MG TABLET PO SCH ×3 (08:45→18:03)
[2022-08-02] MEDS: CALCITRIOL 0.25MCG CAPSULE PO SCH (08:45)
[2022-08-02] MEDS: NIFEDIPINE XL 30MG TAB PO SCH (08:46)
[2022-08-02] MEDS ORDERED: PROPOFOL 200MG/20ML VIAL IV ONE (10:31)
[2022-08-02] MEDS ORDERED: LIDOCAINE HCL 1% 10 MG/ML 10ML VIAL ONE (10:32)
[2022-08-02] MEDS: SODIUM CHLORIDE 0.9% INJ 3ML FLUSH IVF SCH (14:00)
[2022-08-02] MEDS: METOCLOPRAMIDE HCL 10MG/2ML VIAL IV SCH ×2 (15:31→18:03)
== END 2022-08-02 19:10 | disposition home or self-care (01) | DRG 377 ==
LOC: ER 09:18 → 8WST 13:41 → EDBEDREQ 13:43 → EDBEDREQTM 13:43 → CANRESERV 14:40 → ENRESERV 14:40
PROVIDERS: ADMIT Internal Medicine; ATTEND Internal Medicine
PROC: 30233N1 Transfusion of Nonautologous Red Blood Cells into Peripheral Vein, Percutaneous Approach (ICD-10-PCS; 2022-07-30)
PROC: 5A1D70Z Performance of Urinary Filtration, Intermittent, Less than 6 Hours Per Day (ICD-10-PCS; 2022-07-31)
PROC: 0DB78ZX Excision of Stomach, Pylorus, Via Natural or Artificial Opening Endoscopic, Diagnostic (ICD-10-PCS; principal; 2022-08-02)
PROC: 5A1D70Z Performance of Urinary Filtration, Intermittent, Less than 6 Hours Per Day (ICD-10-PCS; 2022-08-02)
DX: K29.61 Other gastritis with bleeding (principal); N18.6 End stage renal disease; I13.2 Hypertensive heart and chronic kidney disease with heart failure and with stage 5 chronic kidney disease, or end stage renal disease; E11.22 Type 2 diabetes mellitus with diabetic chronic kidney disease; E11.51 Type 2 diabetes mellitus with diabetic peripheral angiopathy without gangrene; E11.319 Type 2 diabetes mellitus with unspecified diabetic retinopathy without macular edema; I25.10 Atherosclerotic heart disease of native coronary artery without angina pectoris; I50.9 Heart failure, unspecified; E03.9 Hypothyroidism, unspecified; E78.5 Hyperlipidemia, unspecified; D63.1 Anemia in chronic kidney disease; D53.9 Nutritional anemia, unspecified; K64.4 Residual hemorrhoidal skin tags; Z79.02 Long term (current) use of antithrombotics/antiplatelets; Z79.82 Long term (current) use of aspirin; Z95.0 Presence of cardiac pacemaker; Z79.899 Other long term (current) drug therapy; Z99.2 Dependence on renal dialysis; Z88.8 Allergy status to other drugs, medicaments and biological substances; Z95.1 Presence of aortocoronary bypass graft; Z95.5 Presence of coronary angioplasty implant and graft
CPT/HCPCS: 36415; 71045; 76700; 80048; 80053; 82270; 82607; 82728; 82746; 82962; 83036; 83540; 83550; 83880; 84100; 85025; 85044; 86705; 86709; 86803; 86850; 86900; 86920; 87340; 87426; 88305; 90935; 93005; 99285; C9803; J1200; J1815; J2704; J2765; J3490; P9016

== ENCOUNTER 2022-08-10 11:38 | Inpatient (IN) | payer MEDICARE, MEDICAID ==
[~2022-08-10] VITALS: Ht 167.6 cm; Wt 114.3 kg
[2022-08-10 15:54] LABS: CHLORIDE 99 mEq/L (98-107)
[2022-08-10 15:55] LABS: INR 1.1; PROTHROMBIN TIME 12.1 sec (9.6-11.0)
[2022-08-10 15:56] LABS: BASOPHILS % 0.8 % (0.0-2.0); EOSINOPHILS % 4.4 % (0.0-5.0); LYMPHOCYTES % 11.8 % (20.0-50.0); MEAN CORPUSCULAR HEMOGLOBIN 32.3 pg (28.0-32.0); MEAN CORPUSCULAR VOLUME 97.2 fL (80.0-94.0); MEAN PLATELET VOLUME 8.9 fl (7.4-10.4); MONOCYTES % 10.2 % (2.0-8.0); NEUTROPHILS % 72.8 % (40.0-76.0); PLATELET 144 x1000/uL (130-400); RED BLOOD CELL COUNT 2.11 mill/uL (4.7-6.1)
[2022-08-10 16:04] LABS: HEMATOCRIT. 20.5 % (42.0-52.0); HEMOGLOBIN. 6.8 g/dL (14.0-18.0)
[2022-08-10 16:30] LABS: TOTAL IRON BINDING CAPACITY 198 ug/dL (250-450)
[2022-08-10 17:34] LABS: BG BASE EXCESS -0.2 mmol/L (-2.0-2.0); BG CARBOXYHEMOGLOBIN 0.9 % (0.5-1.5); BG DEOXYHEMOGLOBIN 3.6 % (0.0-5.0); BG FRACTION INSPIRED OXYGEN 21; BG HCO3 ACT 23.9 mmol/L (22.0-26.0); BG METHEMOGLOBIN 0.3 % (0.0-1.5); BG OXYGEN SATURATION 96.4 % (92.0-98.5); BG OXYHEMOGLOBIN 95.2 % (94.0-97.0); BG PCO2 36.1 mmHg (35.0-45.0); BG PH 7.438 (7.350-7.450); BG PO2 89.2 mmHg (75.0-100.0); BG SAMPLE SITE RIGHT BRACHIAL; BG TOTAL HEMOGLOBIN 8.4 g/dL (12.0-18.0); BG VENT MODE ROOM AIR
[2022-08-10] MEDS: PANTOPRAZOLE SODIUM 40 MG/VIAL IV SCH ×3 (19:13→23:29)
[2022-08-11] VITALS (13 sets, daily range): BP systolic 109–150; BP diastolic 52–80
[2022-08-11 07:56] LABS: BASOPHILS % 0.8 % (0.0-2.0); EOSINOPHILS % 4.3 % (0.0-5.0); LYMPHOCYTES % 9.1 % (20.0-50.0); MEAN CORPUSCULAR HEMOGLOBIN 32.1 pg (28.0-32.0); MEAN CORPUSCULAR VOLUME 96.1 fL (80.0-94.0); MEAN PLATELET VOLUME 9.3 fl (7.4-10.4); MONOCYTES % 7.4 % (2.0-8.0); NEUTROPHILS % 78.4 % (40.0-76.0); PLATELET 128 x1000/uL (130-400); RED BLOOD CELL COUNT 2.18 mill/uL (4.7-6.1); RED CELL DISTRIBUTION WIDTH 14.8 % (11.6-14.6)
[2022-08-11 08:27] LABS: INR 1.1; PROTHROMBIN TIME 12.1 sec (9.6-11.0)
[2022-08-11] MEDS: DOCUSATE SODIUM 100MG CAPSULE PO SCH ×2 (12:00→16:36)
[2022-08-11] MEDS ORDERED: SENNOSIDES 8.6MG TABLET PO PRN (12:00)
[2022-08-11 13:48] LABS: HEPATITIS B SURFACE ANTIGEN NEGATIVE
[2022-08-11] MEDS ORDERED: DEXTROSE 50% WATER 50ML SYRINGE IV PRN (23:30)
[2022-08-12] VITALS (14 sets, daily range): BP systolic 112–157; BP diastolic 44–84
[2022-08-12] MEDS: BLOOD SUGAR DIAGNOSTIC STRIP TEST SCH ×3 (06:07→16:40)
[2022-08-12] MEDS: INSULIN LISPRO 100 UNITS/ML SUBCUT SCH ×3 (06:40→17:10)
[2022-08-12] MEDS ORDERED: LEVOTHYROXINE SODIUM 50MCG TABLET PO SCH (06:40)
[2022-08-12 08:54] LABS: BASOPHILS % 0.7 % (0.0-2.0); EOSINOPHILS % 4.1 % (0.0-5.0); HEMOGLOBIN. 8.5 g/dL (14.0-18.0); LYMPHOCYTES % 7.6 % (20.0-50.0); MEAN CORPUSCULAR HEMOGLOBIN 32.3 pg (28.0-32.0); MEAN CORPUSCULAR VOLUME 94.9 fL (80.0-94.0); MEAN PLATELET VOLUME 9.1 fl (7.4-10.4); MONOCYTES % 9.3 % (2.0-8.0); NEUTROPHILS % 78.3 % (40.0-76.0); PLATELET 147 x1000/uL (130-400); RED BLOOD CELL COUNT 2.64 mill/uL (4.7-6.1); RED CELL DISTRIBUTION WIDTH 15.3 % (11.6-14.6)
[2022-08-12] MEDS: DOCUSATE SODIUM 100MG CAPSULE PO SCH ×2 (09:00→17:00)
[2022-08-12] MEDS ORDERED: NIFEDIPINE XL 30MG TAB PO SCH (09:00)
[2022-08-12] MEDS ORDERED: NEBIVOLOL HCL 5 MG TABLET PO SCH (09:00)
[2022-08-12] MEDS ORDERED: FUROSEMIDE 20MG TABLET PO SCH (09:00)
[2022-08-12 09:12] LABS: INR 1.2; PROTHROMBIN TIME 12.4 sec (9.6-11.0)
[2022-08-12] MEDS: CALCIUM ACETATE 667MG CAPSULE PO SCH ×3 (10:16→17:10)
[2022-08-12] MEDS: PANTOPRAZOLE SODIUM 40 MG/VIAL IV SCH ×2 (10:16→17:00)
[2022-08-12] MEDS ORDERED: SEVELAMER CARBONATE 800 MG TABLET PO SCH (13:00)
[2022-08-12] MEDS ORDERED: ATORVASTATIN CALCIUM 10MG TABLET PO SCH (21:00)
== END 2022-08-12 18:05 | disposition home or self-care (01) | DRG 811 ==
LOC: ER 11:38 → MICUSO 18:04 → EDBEDREQ 18:06 → EDBEDREQTM 18:06 → EDBEDREQSVC 18:06 → EDBEDREQ 18:09 → ENRESERV 22:36 → 7EST 08-11 01:47
PROVIDERS: ADMIT Internal Medicine; ATTEND Internal Medicine
PROC: 30233N1 Transfusion of Nonautologous Red Blood Cells into Peripheral Vein, Percutaneous Approach (ICD-10-PCS; principal; 2022-08-10)
PROC: 5A1D70Z Performance of Urinary Filtration, Intermittent, Less than 6 Hours Per Day (ICD-10-PCS; 2022-08-11)
PROC: 5A1D70Z Performance of Urinary Filtration, Intermittent, Less than 6 Hours Per Day (ICD-10-PCS; 2022-08-12)
DX: D64.9 Anemia, unspecified (principal); N18.6 End stage renal disease; I12.0 Hypertensive chronic kidney disease with stage 5 chronic kidney disease or end stage renal disease; E11.22 Type 2 diabetes mellitus with diabetic chronic kidney disease; E11.51 Type 2 diabetes mellitus with diabetic peripheral angiopathy without gangrene; E78.5 Hyperlipidemia, unspecified; I25.10 Atherosclerotic heart disease of native coronary artery without angina pectoris; D63.1 Anemia in chronic kidney disease; K64.4 Residual hemorrhoidal skin tags; K29.50 Unspecified chronic gastritis without bleeding; K80.20 Calculus of gallbladder without cholecystitis without obstruction; Z95.0 Presence of cardiac pacemaker; Z95.1 Presence of aortocoronary bypass graft; Z95.5 Presence of coronary angioplasty implant and graft; Z99.2 Dependence on renal dialysis; Z79.82 Long term (current) use of aspirin; Z79.899 Other long term (current) drug therapy; Z88.8 Allergy status to other drugs, medicaments and biological substances; Z82.49 Family history of ischemic heart disease and other diseases of the circulatory system
CPT/HCPCS: 36415; 36600; 71045; 80048; 80053; 82375; 82607; 82728; 82746; 82805; 82962; 83036; 83540; 83550; 85025; 85044; 86705; 86709; 86803; 86850; 86900; 86920; 87340; 90935; 93005; 99291; C9113; J1815; P9016

== ENCOUNTER 2022-11-01 09:37 | Inpatient (IN) | payer MEDICARE, MEDICAID ==
[~2022-11-01] VITALS: Ht 167.6 cm; Wt 114.3 kg
[2022-11-01 10:58] LABS: BASOPHILS % 0.7 % (0.0-2.0); EOSINOPHILS % 4.9 % (0.0-5.0); LYMPHOCYTES % 8.3 % (20.0-50.0); MEAN CORPUSCULAR HEMOGLOBIN 31.6 pg (28.0-32.0); MEAN CORPUSCULAR VOLUME 93.7 fL (80.0-94.0); MEAN PLATELET VOLUME 8.9 fl (7.4-10.4); MONOCYTES % 6.4 % (2.0-8.0); NEUTROPHILS % 79.7 % (40.0-76.0); PLATELET 164 x1000/uL (130-400); RED BLOOD CELL COUNT 2.18 mill/uL (4.7-6.1); RED CELL DISTRIBUTION WIDTH 16.1 % (11.6-14.6)
[2022-11-01 11:01] LABS: HEMOGLOBIN. 6.9 g/dL (14.0-18.0)
[2022-11-01 11:02] LABS: HEMATOCRIT. 20.4 % (42.0-52.0)
[2022-11-01 11:30] LABS: CHLORIDE 97 mEq/L (98-107)
[2022-11-01 11:38] LABS: TOTAL IRON BINDING CAPACITY 239 ug/dL (250-450)
[2022-11-01 14:21] VITALS: BP 136/66
[2022-11-01 16:00] VITALS: BP 141/58
[2022-11-01] MEDS ORDERED: DOCUSATE SODIUM 100MG CAPSULE PO PRN (16:00)
[2022-11-01] MEDS ORDERED: IPRATROPIUM/ALBUTEROL 0.5-3(2.5)MG/3ML NEB HHN PRN (16:00)
[2022-11-01] MEDS ORDERED: MAGNESIUM/ALUMINUM HYDROXIDE/SIMETHICONE 30ML UDC PO PRN (16:00)
[2022-11-01] MEDS ORDERED: ONDANSETRON HCL 4MG/2ML INJ IV PRN (16:00)
[2022-11-01] MEDS ORDERED: CLONIDINE 0.1MG TABLET PO PRN (16:00)
[2022-11-01] MEDS ORDERED: NA PHOS,M-B/NA PHOS,DI-BA ENEMA 118ML PR PRN (16:00)
[2022-11-01] MEDS ORDERED: HYDROCODONE/ACETAMINOPHEN 5/325MG TABLET PO PRN (16:00)
[2022-11-01] MEDS ORDERED: ACETAMINOPHEN 325MG TABLET PO PRN ×2 (16:00)
[2022-11-01] MEDS ORDERED: ASPIRIN 81MG EC TABLET PO SCH (16:15)
[2022-11-01] MEDS ORDERED: DEXTROSE 50% WATER 50ML SYRINGE IV PRN (16:15)
[2022-11-01] MEDS ORDERED: AMLODIPINE 5MG TABLET PO SCH (16:30)
[2022-11-01 16:39] VITALS: BP 141/58
[2022-11-01] MEDS: NEBIVOLOL HCL 5 MG TABLET PO SCH (17:19)
[2022-11-01] MEDS: LISINOPRIL 10MG TABLET PO SCH (17:19)
[2022-11-01 17:33] LABS: D-DIMER 1.02 mg/L FEU (<0.50); INR 1.2; PROTHROMBIN TIME 12.4 sec (9.6-11.0)
[2022-11-01 17:34] LABS: BASOPHILS % 0.6 % (0.0-2.0); EOSINOPHILS % 5.2 % (0.0-5.0); HEMATOCRIT. 23.7 % (42.0-52.0); LYMPHOCYTES % 8.3 % (20.0-50.0); MEAN CORPUSCULAR HEMOGLOBIN 31.6 pg (28.0-32.0); MEAN CORPUSCULAR VOLUME 93.2 fL (80.0-94.0); MEAN PLATELET VOLUME 8.7 fl (7.4-10.4); NEUTROPHILS % 77.9 % (40.0-76.0); PLATELET 153 x1000/uL (130-400); RED BLOOD CELL COUNT 2.54 mill/uL (4.7-6.1)
[2022-11-01] MEDS: BLOOD SUGAR DIAGNOSTIC STRIP TEST SCH ×2 (17:40→21:16)
[2022-11-01 17:45] LABS: T4 FREE 1.01 ng/dL (0.76-1.46)
[2022-11-01] MEDS: INSULIN LISPRO 100 UNITS/ML SUBCUT SCH ×2 (18:10→21:28)
[2022-11-01] MEDS ORDERED: IPRATROPIUM BROMIDE (0.02%) 0.5MG/2.5ML NEB HHN PRN (19:00)
[2022-11-01] MEDS ORDERED: ALBUTEROL (0.083%) 2.5MG/3ML NEB HHN PRN (19:00)
[2022-11-01 20:00] VITALS: BP 138/74
[2022-11-01] MEDS ORDERED: FAMOTIDINE 20MG TABLET PO SCH (21:00)
[2022-11-01] MEDS ORDERED: ENOXAPARIN 40MG/0.4ML SYR SUBCUT SCH (21:00)
[2022-11-01] MEDS ORDERED: ATORVASTATIN CALCIUM 20MG TABLET PO SCH (21:00)
[2022-11-02] VITALS: BP 133/73
[2022-11-02 04:00] VITALS: BP 120/54
[2022-11-02 05:57] LABS: BASOPHILS % 0.8 % (0.0-2.0); EOSINOPHILS % 5.1 % (0.0-5.0); HEMATOCRIT. 28.7 % (42.0-52.0); HEMOGLOBIN. 9.7 g/dL (14.0-18.0); LYMPHOCYTES % 11.4 % (20.0-50.0); MEAN CORPUSCULAR HEMOGLOBIN 32.1 pg (28.0-32.0); MEAN CORPUSCULAR VOLUME 94.8 fL (80.0-94.0); MEAN PLATELET VOLUME 8.9 fl (7.4-10.4); MONOCYTES % 9.2 % (2.0-8.0); NEUTROPHILS % 73.5 % (40.0-76.0); PLATELET 189 x1000/uL (130-400); RED BLOOD CELL COUNT 3.03 mill/uL (4.7-6.1); RED CELL DISTRIBUTION WIDTH 16.2 % (11.6-14.6)
[2022-11-02] MEDS: BLOOD SUGAR DIAGNOSTIC STRIP TEST SCH ×2 (06:28→12:05)
[2022-11-02] MEDS: INSULIN LISPRO 100 UNITS/ML SUBCUT SCH ×2 (07:34→12:18)
[2022-11-02] MEDS ORDERED: INSULIN REGULAR (HUMULIN R) 300UNITS/3ML VIAL IV NR (07:45)
[2022-11-02] MEDS ORDERED: DEXTROSE 50% WATER 50ML SYRINGE IV NR (07:45)
[2022-11-02 08:00] VITALS: BP 137/57
[2022-11-02] MEDS ORDERED: SODIUM POLYSTYRENE SULFONATE 15 G/60 ML BOT PO NR (08:00)
[2022-11-02] MEDS: LISINOPRIL 10MG TABLET PO SCH (08:47)
[2022-11-02] MEDS: NEBIVOLOL HCL 5 MG TABLET PO SCH (08:47)
[2022-11-02 12:00] VITALS: BP 114/41
[2022-11-02 15:42] VITALS: BP 112/47
[2022-11-02 16:00] VITALS: BP 112/47
== END 2022-11-02 19:26 | disposition home or self-care (01) | DRG 811 ==
LOC: ER 10:11 → 7WST 12:34 → EDBEDREQ 12:40 → ENRESERV 12:58
PROVIDERS: ADMIT Internal Medicine; ATTEND Internal Medicine
PROC: 30233N1 Transfusion of Nonautologous Red Blood Cells into Peripheral Vein, Percutaneous Approach (ICD-10-PCS; principal; 2022-11-01)
DX: D64.9 Anemia, unspecified (principal); N18.6 End stage renal disease; N25.81 Secondary hyperparathyroidism of renal origin; I13.2 Hypertensive heart and chronic kidney disease with heart failure and with stage 5 chronic kidney disease, or end stage renal disease; Z68.41 Body mass index [BMI] 40.0-44.9, adult; E11.43 Type 2 diabetes mellitus with diabetic autonomic (poly)neuropathy; K64.4 Residual hemorrhoidal skin tags; E11.22 Type 2 diabetes mellitus with diabetic chronic kidney disease; I50.9 Heart failure, unspecified; I25.10 Atherosclerotic heart disease of native coronary artery without angina pectoris; K31.84 Gastroparesis; E03.9 Hypothyroidism, unspecified; E11.319 Type 2 diabetes mellitus with unspecified diabetic retinopathy without macular edema; E87.6 Hypokalemia; E11.51 Type 2 diabetes mellitus with diabetic peripheral angiopathy without gangrene; E66.9 Obesity, unspecified; E78.5 Hyperlipidemia, unspecified; Z85.038 Personal history of other malignant neoplasm of large intestine; Z79.899 Other long term (current) drug therapy; Z95.0 Presence of cardiac pacemaker; Z99.2 Dependence on renal dialysis; Z95.1 Presence of aortocoronary bypass graft; Z95.5 Presence of coronary angioplasty implant and graft; Z82.49 Family history of ischemic heart disease and other diseases of the circulatory system; Z79.82 Long term (current) use of aspirin; Z79.02 Long term (current) use of antithrombotics/antiplatelets; Z88.1 Allergy status to other antibiotic agents; Z79.4 Long term (current) use of insulin
CPT/HCPCS: 36415; 71045; 80048; 80053; 80061; 82607; 82746; 82962; 83036; 83540; 83550; 83615; 83880; 84132; 84439; 84443; 84484; 85025; 85379; 85384; 86850; 86900; 86920; 93005; 93306; 93970; 97162; 99291; J1815; P9016

== ENCOUNTER 2022-11-30 05:10 | Inpatient (IN) | payer MEDICARE, MEDICAID ==
[~2022-11-30] VITALS: Ht 167.6 cm; Wt 125.3 kg
[~2022-11-30 05:10] MED LIST changes: -ASPI-1406 PO; +ASPI-986 PO; -ATOR10TA PO; +ATOR20TA65 PO; -CALC667C MT; +CALC667T6 PO; -CLOP-31 PO; -FURO-152 PO; -INSHUMSS SUBCUT; +INSNOV SUBCUT; -INSU100I28 SQ; +INSU300I SQ; -LEVO50TA8 PO; +LISI10TA26 PO; -NIFE-33 PO; +SODIUM CHLORIDE 0.9% 500 ML IV ONE
[2022-11-30 08:49] LABS: BASOPHILS % 0.8 % (0.0-2.0); EOSINOPHILS % 4.8 % (0.0-5.0); HEMATOCRIT. 26.9 % (42.0-52.0); LYMPHOCYTES % 7.8 % (20.0-50.0); MEAN CORPUSCULAR HEMOGLOBIN 31.6 pg (28.0-32.0); MEAN CORPUSCULAR VOLUME 94.5 fL (80.0-94.0); MEAN PLATELET VOLUME 8.2 fl (7.4-10.4); MONOCYTES % 8.4 % (2.0-8.0); NEUTROPHILS % 78.2 % (40.0-76.0); PLATELET 205 x1000/uL (130-400); RED BLOOD CELL COUNT 2.84 mill/uL (4.7-6.1); RED CELL DISTRIBUTION WIDTH 15.2 % (11.6-14.6)
[2022-11-30 09:00] LABS: INR 1.1; PARTIAL THROMBOPLASTIN TIME 32.5 sec (23.4-31.0)
[2022-11-30] MEDS ORDERED: SKIN ADHESIVE 0.7 GM EA TOP ONE (10:09)
[2022-11-30] MEDS ORDERED: BUPIVACAINE HCL/PF 0.5% (5MG/ML) 30ML ONE (10:09)
[2022-11-30] MEDS ORDERED: ALBUMIN HUMAN 12.5GM/50ML (25%) IV ONE (10:33)
[2022-11-30] MEDS ORDERED: PIPERACILLIN/TAZOBACTAM 3.375GM/50ML PREMIX IV ONE (10:45)
[2022-11-30] MEDS ORDERED: DEXAMETHASONE 4MG/ML 1ML VIAL ONE (10:48)
[2022-11-30] MEDS ORDERED: ONDANSETRON HCL 4MG/2ML INJ ONE (10:48)
[2022-11-30] MEDS ORDERED: LIDOCAINE HCL 1% 20ML VIAL (Pyxis) INJ ONE (10:48)
[2022-11-30] MEDS ORDERED: CLINDAMYCIN 900 MG PREMIX 50 ML IV NR (11:00)
[2022-11-30] MEDS ORDERED: ROCURONIUM BROMIDE 10MG/ML VIAL 5ML IV ONE (11:01)
[2022-11-30] MEDS ORDERED: SUCCINYLCHOLINE CHLORIDE 200MG/10ML IV ONE (11:04)
[2022-11-30] MEDS ORDERED: ETOMIDATE 2MG/ML 10ML VIAL IV ONE (11:06)
[2022-11-30] MEDS ORDERED: CLINDAMYCIN IN 0.9 % SOD CHLOR 50 ML IV NR (11:27)
[2022-11-30] MEDS ORDERED: FENTANYL CITRATE/PF 50MCG/ML 2ML VIAL ONE (12:42)
[2022-11-30] MEDS ORDERED: MIDAZOLAM HCL 2 MG/2 ML VIAL ONE (12:42)
[2022-11-30] MEDS ORDERED: DEXT 5%/0.45% NACL KCL 20MEQ/L 1,000 ML IV SCH (14:00)
[2022-11-30] MEDS ORDERED: ONDANSETRON HCL 4MG/2ML INJ IV PRN (14:00)
[2022-11-30] MEDS ORDERED: FENTANYL CITRATE/PF 50MCG/ML 2ML VIAL IV PRN (14:00)
[2022-11-30] MEDS ORDERED: NALOXONE HCL 0.4MG/ML VIAL IV PRN (14:15)
[2022-11-30] MEDS: BUPIVACAINE HCL 0.5% 125 ML in ON-Q PM012 DRUG DELIV DEVICE 1 EA IR SCH (14:41)
[2022-11-30] MEDS: HYDROMORPHONE HCL/PF 2MG/ML CPJ IV PRN ×2 (14:50→15:06)
[2022-11-30 18:13] VITALS: BP 110/60
[2022-11-30 18:16] VITALS: BP 110/60
[2022-11-30] MEDS: MORPHINE SULFATE 4 MG/ML CPJ (NOT FOR IM USE) IV PRN ×2 (20:01→23:58)
[2022-11-30] MEDS: FAMOTIDINE 20MG/2ML VIAL IV SCH (20:09)
[2022-11-30] MEDS ORDERED: ACETAMINOPHEN 650MG SUPP PR PRN (21:00)
[2022-11-30] MEDS: DEXT 5%/0.45% NACL 1000ML 1,000 ML IV SCH (21:40)
[2022-11-30 22:25] LABS: HEPATITIS B SURFACE ANTIGEN NEGATIVE
[2022-12-01] VITALS (11 sets, daily range): BP systolic 107–125; BP diastolic 40–83
[2022-12-01] MEDS ORDERED: HYDRALAZINE 20MG/ML VIAL IV PRN (01:45)
[2022-12-01] MEDS: MORPHINE SULFATE 4 MG/ML CPJ (NOT FOR IM USE) IV PRN ×3 (05:11→22:18)
[2022-12-01] MEDS ORDERED: DEXTROSE 50% WATER 50ML SYRINGE IV PRN (08:00)
[2022-12-01] MEDS: IPRATROPIUM/ALBUTEROL 0.5-3(2.5)MG/3ML NEB HHN SCH ×5 (08:35→23:59)
[2022-12-01] MEDS: ENOXAPARIN 40MG/0.4ML SYR SUBCUT SCH (09:19)
[2022-12-01 10:25] LABS: HEMATOCRIT. 24.7 % (42.0-52.0); HEMOGLOBIN. 8.5 g/dL (14.0-18.0); MEAN CORPUSCULAR HEMOGLOBIN 31.2 pg (28.0-32.0); MEAN CORPUSCULAR VOLUME 91.3 fL (80.0-94.0); PLATELET 154 x1000/uL (130-400); RED BLOOD CELL COUNT 2.71 mill/uL (4.7-6.1); RED CELL DISTRIBUTION WIDTH 15.3 % (11.6-14.6)
[2022-12-01 11:01] LABS: CHLORIDE 97 mEq/L (98-107)
[2022-12-01 11:24] LABS: PHOSPHORUS 8.4 mg/dL (2.5-4.9)
[2022-12-01] MEDS: BLOOD SUGAR DIAGNOSTIC STRIP TEST SCH ×3 (12:17→21:00)
[2022-12-01] MEDS: DEXT 5%/0.45% NACL 1000ML 1,000 ML IV SCH (13:54)
[2022-12-01] MEDS: BUPIVACAINE HCL 0.5% 125 ML in ON-Q PM012 DRUG DELIV DEVICE 1 EA IR SCH (14:00)
[2022-12-01 18:18] LABS: PLATELET ESTIMATE NORMAL
[2022-12-02] VITALS: BP 113/26
[2022-12-02 04:00] VITALS: BP 139/28
[2022-12-02] MEDS: MORPHINE SULFATE 4 MG/ML CPJ (NOT FOR IM USE) IV PRN ×2 (04:19→09:09)
[2022-12-02] MEDS: IPRATROPIUM/ALBUTEROL 0.5-3(2.5)MG/3ML NEB HHN SCH ×5 (04:26→21:13)
[2022-12-02] MEDS: DEXT 5%/0.45% NACL 1000ML 1,000 ML IV SCH (06:28)
[2022-12-02 06:49] LABS: HEMATOCRIT. 24.1 % (42.0-52.0); HEMOGLOBIN. 8.2 g/dL (14.0-18.0); MEAN CORPUSCULAR HEMOGLOBIN 31.7 pg (28.0-32.0); MEAN CORPUSCULAR VOLUME 92.8 fL (80.0-94.0); MEAN PLATELET VOLUME 9.1 fl (7.4-10.4); PLATELET 139 x1000/uL (130-400); RED CELL DISTRIBUTION WIDTH 15.4 % (11.6-14.6)
[2022-12-02 06:55] LABS: CHLORIDE 92 mEq/L (98-107)
[2022-12-02] MEDS: BLOOD SUGAR DIAGNOSTIC STRIP TEST SCH ×4 (07:38→20:23)
[2022-12-02 08:00] VITALS: BP 103/53
[2022-12-02] MEDS: ENOXAPARIN 40MG/0.4ML SYR SUBCUT SCH (09:04)
[2022-12-02 12:00] VITALS: BP 127/42
[2022-12-02] MEDS: BUPIVACAINE HCL 0.5% 125 ML in ON-Q PM012 DRUG DELIV DEVICE 1 EA IR SCH (14:00)
[2022-12-02 16:00] VITALS: BP 138/45
[2022-12-02 20:00] VITALS: BP 114/41
[2022-12-02] MEDS: MORPHINE SULFATE 2 MG/ML CPJ (NOT FOR IM USE) IV PRN (20:22)
[2022-12-02] MEDS: FAMOTIDINE 20MG/2ML VIAL IV SCH (20:22)
[2022-12-03] VITALS (14 sets, daily range): BP systolic 103–143; BP diastolic 28–78
[2022-12-03] MEDS: DEXT 5%/0.45% NACL 1000ML 1,000 ML IV SCH ×2 (00:49→15:12)
[2022-12-03] MEDS: MORPHINE SULFATE 2 MG/ML CPJ (NOT FOR IM USE) IV PRN ×2 (00:53→18:34)
[2022-12-03] MEDS: IPRATROPIUM/ALBUTEROL 0.5-3(2.5)MG/3ML NEB HHN SCH ×5 (00:55→20:11)
[2022-12-03 06:37] LABS: BASOPHILS % 0.6 % (0.0-2.0); EOSINOPHILS % 2.5 % (0.0-5.0); HEMATOCRIT. 23.3 % (42.0-52.0); LYMPHOCYTES % 9.1 % (20.0-50.0); MEAN CORPUSCULAR HEMOGLOBIN 31.9 pg (28.0-32.0); MEAN CORPUSCULAR VOLUME 92.6 fL (80.0-94.0); MEAN PLATELET VOLUME 8.9 fl (7.4-10.4); MONOCYTES % 10.5 % (2.0-8.0); NEUTROPHILS % 77.3 % (40.0-76.0); PLATELET 138 x1000/uL (130-400); RED BLOOD CELL COUNT 2.52 mill/uL (4.7-6.1); RED CELL DISTRIBUTION WIDTH 15.5 % (11.6-14.6)
[2022-12-03 07:29] LABS: PLATELET ESTIMATE NORMAL
[2022-12-03] MEDS: ENOXAPARIN 40MG/0.4ML SYR SUBCUT SCH (08:17)
[2022-12-03] MEDS: MORPHINE SULFATE 4 MG/ML CPJ (NOT FOR IM USE) IV PRN (08:18)
[2022-12-03] MEDS: BLOOD SUGAR DIAGNOSTIC STRIP TEST SCH ×4 (08:18→21:36)
[2022-12-03] MEDS ORDERED: LIDOCAINE 5% PATCH TOP PRN (13:15)
[2022-12-04] VITALS: BP 109/60
[2022-12-04] MEDS: IPRATROPIUM/ALBUTEROL 0.5-3(2.5)MG/3ML NEB HHN SCH ×6 (00:35→20:22)
[2022-12-04] MEDS: MORPHINE SULFATE 2 MG/ML CPJ (NOT FOR IM USE) IV PRN ×3 (03:44→21:51)
[2022-12-04 04:00] VITALS: BP 130/36
[2022-12-04] MEDS: BLOOD SUGAR DIAGNOSTIC STRIP TEST SCH ×4 (07:16→20:07)
[2022-12-04 08:00] VITALS: BP 140/38
[2022-12-04] MEDS: DEXT 5%/0.45% NACL 1000ML 1,000 ML IV SCH (08:47)
[2022-12-04] MEDS: ENOXAPARIN 40MG/0.4ML SYR SUBCUT SCH (08:48)
[2022-12-04 12:14] VITALS: BP 132/41
[2022-12-04 16:00] VITALS: BP 134/32
[2022-12-04 20:00] VITALS: BP 125/35
[2022-12-04] MEDS: FAMOTIDINE 20MG/2ML VIAL IV SCH (20:16)
[2022-12-05] VITALS: BP 130/35
[2022-12-05] MEDS: IPRATROPIUM/ALBUTEROL 0.5-3(2.5)MG/3ML NEB HHN SCH ×6 (00:16→22:02)
[2022-12-05] MEDS: DEXT 5%/0.45% NACL 1000ML 1,000 ML IV SCH (02:27)
[2022-12-05 04:00] VITALS: BP 137/34
[2022-12-05] MEDS: MORPHINE SULFATE 4 MG/ML CPJ (NOT FOR IM USE) IV PRN (05:46)
[2022-12-05] MEDS: BLOOD SUGAR DIAGNOSTIC STRIP TEST SCH ×4 (06:40→20:16)
[2022-12-05 08:00] VITALS: BP 107/56
[2022-12-05] MEDS: ENOXAPARIN 40MG/0.4ML SYR SUBCUT SCH (09:29)
[2022-12-05 09:57] LABS: HEMATOCRIT. 23.5 % (42.0-52.0); HEMOGLOBIN. 7.8 g/dL (14.0-18.0); MEAN CORPUSCULAR HEMOGLOBIN 31.4 pg (28.0-32.0); MEAN CORPUSCULAR VOLUME 94.4 fL (80.0-94.0); MEAN PLATELET VOLUME 8.7 fl (7.4-10.4); PLATELET 133 x1000/uL (130-400); RED BLOOD CELL COUNT 2.49 mill/uL (4.7-6.1); RED CELL DISTRIBUTION WIDTH 15.6 % (11.6-14.6)
[2022-12-05] MEDS ORDERED: ASPIRIN 81MG TABLET PO NR (11:30)
[2022-12-05 12:00] VITALS: BP 96/36
[2022-12-05 14:03] LABS: PLATELET ESTIMATE NORMAL
[2022-12-05 16:00] VITALS: BP 114/54
[2022-12-05] MEDS ORDERED: HYDROCODONE/ACETAMINOPHEN 5/325MG TABLET PO PRN (19:15)
[2022-12-05 20:00] VITALS: BP 133/44
[2022-12-06] VITALS (15 sets, daily range): BP systolic 98–151; BP diastolic 29–57
[2022-12-06] MEDS: BLOOD SUGAR DIAGNOSTIC STRIP TEST SCH ×3 (05:16→21:22)
[2022-12-06 06:23] LABS: HEMATOCRIT. 22.5 % (42.0-52.0); HEMOGLOBIN. 7.6 g/dL (14.0-18.0); MEAN CORPUSCULAR HEMOGLOBIN 31.4 pg (28.0-32.0); MEAN CORPUSCULAR VOLUME 93.1 fL (80.0-94.0); MEAN PLATELET VOLUME 9.1 fl (7.4-10.4); PLATELET 135 x1000/uL (130-400); RED BLOOD CELL COUNT 2.42 mill/uL (4.7-6.1); RED CELL DISTRIBUTION WIDTH 15.2 % (11.6-14.6)
[2022-12-06] MEDS: LEVOTHYROXINE SODIUM 50MCG TABLET PO SCH (07:44)
[2022-12-06] MEDS: ASPIRIN 81MG TABLET PO SCH (09:13)
[2022-12-06] MEDS ORDERED: NALOXONE HCL 0.4MG/ML VIAL IV PRN (17:30)
[2022-12-06] MEDS ORDERED: EPOETIN ALFA-EPBX 4,000 UNIT/ML VIAL SUBCUT SCH (21:00)
[2022-12-06] MEDS ORDERED: FAMOTIDINE 20MG TABLET PO SCH (21:00)
[2022-12-06 21:46] LABS: PLATELET ESTIMATE NORMAL
[2022-12-07] VITALS: BP 98/27
[2022-12-07 04:00] VITALS: BP 138/34
[2022-12-07 05:54] LABS: BASOPHILS % 0.7 % (0.0-2.0); EOSINOPHILS % 6.5 % (0.0-5.0); HEMATOCRIT. 22.5 % (42.0-52.0); HEMOGLOBIN. 7.7 g/dL (14.0-18.0); LYMPHOCYTES % 8.1 % (20.0-50.0); MEAN CORPUSCULAR HEMOGLOBIN 31.6 pg (28.0-32.0); MEAN CORPUSCULAR VOLUME 92.9 fL (80.0-94.0); MONOCYTES % 11.6 % (2.0-8.0); NEUTROPHILS % 73.1 % (40.0-76.0); PLATELET 140 x1000/uL (130-400); RED BLOOD CELL COUNT 2.43 mill/uL (4.7-6.1)
[2022-12-07] MEDS: BLOOD SUGAR DIAGNOSTIC STRIP TEST SCH ×2 (06:35→12:40)
[2022-12-07 08:01] VITALS: BP 140/71
[2022-12-07] MEDS: LEVOTHYROXINE SODIUM 50MCG TABLET PO SCH (08:49)
[2022-12-07] MEDS: ASPIRIN 81MG TABLET PO SCH (08:49)
[2022-12-07 12:00] VITALS: BP 124/36
[2022-12-07 15:25] LABS: PHOSPHORUS 8.6 mg/dL (2.5-4.9)
[2022-12-07] MEDS ORDERED: ASPI-986 PO (15:42)
[2022-12-07 16:00] VITALS: BP 137/85
[2022-12-07 16:12] VITALS: BP 135/85
[2022-12-07] MEDS ORDERED: EPOETIN ALFA-EPBX 4,000 UNIT/ML VIAL SUBCUT NR (21:00)
== END 2022-12-07 17:10 | disposition home health service (06) | DRG 329 ==
LOC: OR 05:10 → 7WST 18:23
PROVIDERS: ADMIT Surgery; ATTEND Surgery
PROC: 0DBK0ZZ Excision of Ascending Colon, Open Approach (ICD-10-PCS; principal; 2022-11-30)
PROC: B54MZZA Ultrasonography of Right Upper Extremity Veins, Guidance (ICD-10-PCS; 2022-11-30)
PROC: 05HY33Z Insertion of Infusion Device into Upper Vein, Percutaneous Approach (ICD-10-PCS; 2022-11-30)
PROC: 30233N1 Transfusion of Nonautologous Red Blood Cells into Peripheral Vein, Percutaneous Approach (ICD-10-PCS; 2022-11-30)
PROC: 5A1D70Z Performance of Urinary Filtration, Intermittent, Less than 6 Hours Per Day (ICD-10-PCS; 2022-12-01)
PROC: 5A1D70Z Performance of Urinary Filtration, Intermittent, Less than 6 Hours Per Day (ICD-10-PCS; 2022-12-03)
PROC: 5A1D70Z Performance of Urinary Filtration, Intermittent, Less than 6 Hours Per Day (ICD-10-PCS; 2022-12-06)
DX: C18.2 Malignant neoplasm of ascending colon (principal); N18.6 End stage renal disease; N25.81 Secondary hyperparathyroidism of renal origin; I12.0 Hypertensive chronic kidney disease with stage 5 chronic kidney disease or end stage renal disease; I25.10 Atherosclerotic heart disease of native coronary artery without angina pectoris; I70.209 Unspecified atherosclerosis of native arteries of extremities, unspecified extremity; E78.5 Hyperlipidemia, unspecified; E03.9 Hypothyroidism, unspecified; E11.319 Type 2 diabetes mellitus with unspecified diabetic retinopathy without macular edema; D63.0 Anemia in neoplastic disease; E11.22 Type 2 diabetes mellitus with diabetic chronic kidney disease; E11.40 Type 2 diabetes mellitus with diabetic neuropathy, unspecified; E11.51 Type 2 diabetes mellitus with diabetic peripheral angiopathy without gangrene; Z79.82 Long term (current) use of aspirin; Z79.899 Other long term (current) drug therapy; Z83.3 Family history of diabetes mellitus; Z99.2 Dependence on renal dialysis; Z95.5 Presence of coronary angioplasty implant and graft; Z87.891 Personal history of nicotine dependence; Z95.0 Presence of cardiac pacemaker; Z95.1 Presence of aortocoronary bypass graft
CPT/HCPCS: 36415; 36573; 80048; 80053; 82040; 82962; 83036; 83735; 84100; 84134; 84484; 85025; 86705; 86709; 86803; 86850; 86900; 86920; 87340; 87426; 88307; 90935; 93005; 93970; 94640; 97116; 97162; C1725; C9803; J0330; J0885; J1100; J1170; J1650; J2250; J2270; J2405; J3010; J3490; P9016; P9047

== ENCOUNTER 2022-12-16 22:08 | Inpatient (IN) | payer MEDICARE, MEDICAID ==
[~2022-12-16] VITALS: Ht 167.6 cm; Wt 113.4 kg
[~2022-12-16 22:08] MED LIST changes: -SODIUM CHLORIDE 0.9% 500 ML IV ONE
[2022-12-17] VITALS (12 sets, daily range): BP systolic 106–136; BP diastolic 34–64
[2022-12-17 07:17] LABS: CHLORIDE 99 mEq/L (98-107)
[2022-12-17 07:21] LABS: MEAN CORPUSCULAR HEMOGLOBIN 31.3 pg (28.0-32.0); MEAN CORPUSCULAR VOLUME 91.6 fL (80.0-94.0); MEAN PLATELET VOLUME 8.8 fl (7.4-10.4); PLATELET 191 x1000/uL (130-400); RED BLOOD CELL COUNT 2.21 mill/uL (4.7-6.1); RED CELL DISTRIBUTION WIDTH 14.6 % (11.6-14.6)
[2022-12-17 07:38] LABS: HEMATOCRIT. 20.3 % (42.0-52.0); HEMOGLOBIN. 6.9 g/dL (14.0-18.0)
[2022-12-17] MEDS ORDERED: MORPHINE SULFATE 4 MG/ML CPJ (NOT FOR IM USE) IV ONE (07:45)
[2022-12-17] MEDS ORDERED: CLINDAMYCIN 600 MG in DEXTROSE 5% WATER 50 ML IV ONE (08:00)
[2022-12-17] MEDS ORDERED: SULFAMETHOXAZOLE/TRIMETHOPRIM 800/160MG TABLET PO ONE (08:15)
[2022-12-17 09:29] LABS: PLATELET ESTIMATE NORMAL
[2022-12-17] MEDS ORDERED: MAGNESIUM/ALUMINUM HYDROXIDE/SIMETHICONE 30ML UDC PO PRN (13:45)
[2022-12-17] MEDS ORDERED: CLONIDINE 0.1MG TABLET PO PRN (13:45)
[2022-12-17] MEDS ORDERED: DEXTROSE 50% WATER 50ML SYRINGE IV PRN (13:45)
[2022-12-17] MEDS ORDERED: VANCOMYCIN 1G PREMIX 200 ML IV SCH (13:45)
[2022-12-17] MEDS ORDERED: ONDANSETRON HCL 4MG/2ML INJ IV PRN (13:45)
[2022-12-17] MEDS ORDERED: ZOLPIDEM TARTRATE 5MG TABLET PO PRN (13:45)
[2022-12-17] MEDS ORDERED: ACETAMINOPHEN 325MG TABLET PO PRN ×2 (13:45)
[2022-12-17] MEDS ORDERED: DIPHENHYDRAMINE 50MG/ML VIAL IV PRN (13:45)
[2022-12-17] MEDS ORDERED: NALOXONE HCL 0.4MG/ML VIAL IV PRN (14:00)
[2022-12-17] MEDS: SODIUM CHLORIDE 0.9% INJ 3ML FLUSH IVF SCH ×2 (14:25→22:00)
[2022-12-17] MEDS ORDERED: VANCOMYCIN 2,000 MG in DEXT 5% WATER 500 ML IV NR (16:00)
[2022-12-17 16:38] LABS: HEMATOCRIT 23.9 % (42.0-52.0); HEMOGLOBIN 8.1 g/dL (14.0-18.0)
[2022-12-17] MEDS: BLOOD SUGAR DIAGNOSTIC STRIP TEST SCH ×2 (16:58→21:00)
[2022-12-17 17:33] LABS: HEPATITIS B SURFACE ANTIGEN NEGATIVE
[2022-12-17] MEDS ORDERED: MEROPENEM 1,000 MG in SODIUM CHLORIDE 0.9% 100 ML IV SCH (18:00)
[2022-12-17] MEDS: INSULIN LISPRO 100 UNITS/ML SUBCUT SCH ×2 (18:10→21:00)
[2022-12-17] MEDS: HYDROCODONE/ACETAMINOPHEN 5/325MG TABLET PO PRN (18:18)
[2022-12-17] MEDS: ATORVASTATIN CALCIUM 20MG TABLET PO SCH (21:13)
[2022-12-18] VITALS: BP 137/37
[2022-12-18 04:00] VITALS: BP 116/64
[2022-12-18 05:38] LABS: HEMOGLOBIN. 8.5 g/dL (14.0-18.0); MEAN CORPUSCULAR VOLUME 91.1 fL (80.0-94.0); MEAN PLATELET VOLUME 8.2 fl (7.4-10.4); PLATELET 216 x1000/uL (130-400); RED BLOOD CELL COUNT 2.75 mill/uL (4.7-6.1)
[2022-12-18] MEDS: SODIUM CHLORIDE 0.9% INJ 3ML FLUSH IVF SCH ×3 (06:00→22:00)
[2022-12-18] MEDS: BLOOD SUGAR DIAGNOSTIC STRIP TEST SCH ×4 (06:57→21:13)
[2022-12-18 08:00] VITALS: BP 153/35
[2022-12-18] MEDS: INSULIN LISPRO 100 UNITS/ML SUBCUT SCH ×4 (08:10→21:42)
[2022-12-18 12:00] VITALS: BP 140/37
[2022-12-18] MEDS: NEBIVOLOL HCL 5 MG TABLET PO SCH (13:14)
[2022-12-18] MEDS: MORPHINE SULFATE 4 MG/ML CPJ (NOT FOR IM USE) IV PRN ×2 (13:18→21:35)
[2022-12-18 14:07] LABS: PLATELET ESTIMATE NORMAL
[2022-12-18 16:17] VITALS: BP 128/31
[2022-12-18] MEDS: METRONIDAZOLE 500MG TABLET PO SCH (18:16)
[2022-12-18] MEDS: AZTREONAM 1 G in DEXTROSE 5% WATER 50 ML IV SCH (18:16)
[2022-12-18 20:00] VITALS: BP 146/76
[2022-12-18] MEDS: ATORVASTATIN CALCIUM 20MG TABLET PO SCH (21:45)
[2022-12-19] VITALS: BP 135/65
[2022-12-19 04:00] VITALS: BP 129/65
[2022-12-19] MEDS: METRONIDAZOLE 500MG TABLET PO SCH ×2 (06:10→18:00)
[2022-12-19] MEDS: SODIUM CHLORIDE 0.9% INJ 3ML FLUSH IVF SCH ×2 (06:11→15:55)
[2022-12-19] MEDS: INSULIN LISPRO 100 UNITS/ML SUBCUT SCH ×3 (06:11→18:10)
[2022-12-19] MEDS: BLOOD SUGAR DIAGNOSTIC STRIP TEST SCH ×3 (06:11→17:40)
[2022-12-19 06:50] LABS: BASOPHILS % 0.7 % (0.0-2.0); EOSINOPHILS % 6.8 % (0.0-5.0); HEMATOCRIT. 26.4 % (42.0-52.0); HEMOGLOBIN. 8.8 g/dL (14.0-18.0); LYMPHOCYTES % 7.7 % (20.0-50.0); MEAN CORPUSCULAR HEMOGLOBIN 31.3 pg (28.0-32.0); MEAN CORPUSCULAR VOLUME 94.1 fL (80.0-94.0); MEAN PLATELET VOLUME 8.4 fl (7.4-10.4); MONOCYTES % 8.6 % (2.0-8.0); NEUTROPHILS % 76.2 % (40.0-76.0); PLATELET 204 x1000/uL (130-400); RED BLOOD CELL COUNT 2.81 mill/uL (4.7-6.1)
[2022-12-19 08:00] VITALS: BP 139/56
[2022-12-19] MEDS: NEBIVOLOL HCL 5 MG TABLET PO SCH (08:50)
[2022-12-19] MEDS: MORPHINE SULFATE 4 MG/ML CPJ (NOT FOR IM USE) IV PRN (10:08)
[2022-12-19 12:00] VITALS: BP 105/55
[2022-12-19] MEDS: HYDROCODONE/ACETAMINOPHEN 5/325MG TABLET PO PRN (15:54)
[2022-12-19 15:58] VITALS: BP 115/55
[2022-12-19] MEDS: AZTREONAM 1 G in DEXTROSE 5% WATER 50 ML IV SCH (18:00)
== END 2022-12-19 18:48 | disposition home health service (06) | DRG 871 ==
LOC: ER 22:08 → EDBEDREQ 12-17 09:54 → EDBEDREQTM 12-17 09:54 → 7WST 12-17 12:35
PROVIDERS: ADMIT Internal Medicine; ATTEND Internal Medicine
PROC: 30233N1 Transfusion of Nonautologous Red Blood Cells into Peripheral Vein, Percutaneous Approach (ICD-10-PCS; principal; 2022-12-17)
PROC: 5A1D70Z Performance of Urinary Filtration, Intermittent, Less than 6 Hours Per Day (ICD-10-PCS; 2022-12-17)
DX: A41.9 Sepsis, unspecified organism (principal); N18.6 End stage renal disease; I13.2 Hypertensive heart and chronic kidney disease with heart failure and with stage 5 chronic kidney disease, or end stage renal disease; L03.311 Cellulitis of abdominal wall; E87.1 Hypo-osmolality and hyponatremia; I42.9 Cardiomyopathy, unspecified; Z68.41 Body mass index [BMI] 40.0-44.9, adult; E11.22 Type 2 diabetes mellitus with diabetic chronic kidney disease; I50.9 Heart failure, unspecified; E78.00 Pure hypercholesterolemia, unspecified; E11.51 Type 2 diabetes mellitus with diabetic peripheral angiopathy without gangrene; E87.5 Hyperkalemia; I25.10 Atherosclerotic heart disease of native coronary artery without angina pectoris; I70.209 Unspecified atherosclerosis of native arteries of extremities, unspecified extremity; E66.01 Morbid (severe) obesity due to excess calories; E03.9 Hypothyroidism, unspecified; D63.1 Anemia in chronic kidney disease; E78.5 Hyperlipidemia, unspecified; Z95.5 Presence of coronary angioplasty implant and graft; Z99.2 Dependence on renal dialysis; Z79.4 Long term (current) use of insulin; Z85.038 Personal history of other malignant neoplasm of large intestine; Z90.49 Acquired absence of other specified parts of digestive tract; Z95.0 Presence of cardiac pacemaker; Z95.1 Presence of aortocoronary bypass graft; Z79.899 Other long term (current) drug therapy; Z83.3 Family history of diabetes mellitus; Z82.49 Family history of ischemic heart disease and other diseases of the circulatory system
CPT/HCPCS: 36415; 74176; 80048; 80053; 82962; 83036; 85014; 85018; 85025; 86705; 86709; 86803; 86850; 86900; 86920; 87070; 87077; 87186; 87340; 90935; 99285; J1815; J2185; J2270; J3370; J3490; J7050; J7060; P9016

== ENCOUNTER 2024-10-05 14:09 | Inpatient (IN) | payer MEDICARE, OTHER, MEDICAID ==
[~2024-10-05] VITALS: Ht 167.6 cm; Wt 109.1 kg
[~2024-10-05 14:09] MED LIST changes: -NEBI5TAB3 PO; +NEBI5TAB9 PO
[2024-10-05] MEDS ORDERED: VANCOMYCIN 1G PREMIX 200 ML IV ONE (15:30)
[2024-10-05] MEDS: SODIUM CHLORIDE 0.9% 500 ML IV ONE (15:53)
[2024-10-05] MEDS: PIPERACILLIN/TAZO 3.375G/50ML 50 ML IV ONE (16:02)
[2024-10-05 16:05] LABS: HEMATOCRIT. 33.1 % (42.0-52.0); HEMOGLOBIN. 10.6 g/dL (14.0-18.0); MEAN CORPUSCULAR HEMOGLOBIN 32.5 pg (28.0-32.0); MEAN CORPUSCULAR VOLUME 101.6 fL (80.0-94.0); PLATELET 80 x1000/uL (130-400); RED BLOOD CELL COUNT 3.26 mill/uL (4.7-6.1); RED CELL DISTRIBUTION WIDTH 17.3 % (11.6-14.6); WHITE BLOOD COUNT 11.8 x1000/uL (4.5-11.0)
[2024-10-05 16:08] LABS: DIFFERENTIAL COMMENT 1
[2024-10-05 16:13] LABS: CALCIUM 9.6 mg/dL (8.7-10.4)
[2024-10-05 17:17] LABS: PLATELET ESTIMATE DECREASED
[2024-10-05] MEDS: ACETAMINOPHEN 325MG TABLET PO ONE (19:06)
[2024-10-05] MEDS: VANCOMYCIN 1G PREMIX 200 ML IV NR (19:06)
[2024-10-05 20:00] VITALS: BP 146/74; PULSE 92; RESP 20; TEMP 36.4; O2SAT 100
[2024-10-05] MEDS ORDERED: MAGNESIUM/ALUMINUM HYDROXIDE/SIMETHICONE 30ML UDC PO PRN (20:45)
[2024-10-05] MEDS ORDERED: ONDANSETRON HCL 4MG/2ML INJ IV PRN (20:45)
[2024-10-05] MEDS ORDERED: IPRATROPIUM/ALBUTEROL 0.5-3(2.5)MG/3ML NEB HHN PRN (20:45)
[2024-10-05] MEDS ORDERED: ACETAMINOPHEN 325MG TABLET PO PRN (20:45)
[2024-10-05] MEDS ORDERED: VANCOMYCIN 1G PREMIX 200 ML IV SCH (20:45)
[2024-10-05] MEDS ORDERED: NALOXONE HCL 0.4MG/ML VIAL IV PRN (21:00)
[2024-10-05] MEDS: HYDROCODONE/ACETAMINOPHEN 5/325MG TABLET PO PRN (21:43)
[2024-10-05 21:45] LABS: FOLIC ACID (FOLATE) SERUM 5.96 ng/mL (>5.38)
[2024-10-05 21:47] LABS: VITAMIN B12 SERUM 478 pg/mL (211-911)
[2024-10-05 21:58] LABS: HEPATITIS B SURFACE ANTIGEN NEGATIVE (Negative)
[2024-10-05 22:18] LABS: HEPATITIS A AB IGM NEGATIVE (Negative)
[2024-10-05 22:19] LABS: HEPATITIS B CORE AB IGM NEGATIVE (Negative); HEPATITIS C AB NON REACTIVE (Neg) (Negative)
[2024-10-05 22:28] VITALS: BP 146/74; PULSE 92; RESP 18; TEMP 36.4
[2024-10-05] MEDS: PIPERACILLIN/TAZO 3.375G/50ML 50 ML IV SCH (23:01)
[2024-10-06] VITALS (12 sets, daily range): BP systolic 98–134; BP diastolic 45–76; PULSE 72–98; RESP 17–20; TEMP 36.1–36.7; O2SAT 98–100
[2024-10-06] MEDS: VANCOMYCIN 1GM/200ML PMX (BAXTER) IV SCH (00:14)
[2024-10-06 07:30] LABS: HEMATOCRIT. 31.3 % (42.0-52.0); HEMOGLOBIN. 10.3 g/dL (14.0-18.0); MEAN CORPUSCULAR HEMOGLOBIN 32.6 pg (28.0-32.0); MEAN CORPUSCULAR HGB CONC 32.8 g/dL (31.0-37.0); MEAN CORPUSCULAR VOLUME 99.5 fL (80.0-94.0); MEAN PLATELET VOLUME 9.3 fl (7.4-10.4); PLATELET 76 x1000/uL (130-400); RED BLOOD CELL COUNT 3.14 mill/uL (4.7-6.1); RED CELL DISTRIBUTION WIDTH 17.2 % (11.6-14.6); WHITE BLOOD COUNT 11.9 x1000/uL (4.5-11.0)
[2024-10-06 08:08] LABS: DIFFERENTIAL COMMENT 1
[2024-10-06] MEDS ORDERED: DEXTROSE 50% WATER 50ML SYRINGE IV PRN (14:15)
[2024-10-06] MEDS: BLOOD SUGAR DIAGNOSTIC STRIP TEST SCH (17:09)
[2024-10-06] MEDS: INSULIN LISPRO 100 UNITS/ML SUBCUT SCH (17:10)
[2024-10-06 17:49] LABS: ANISOCYTOSIS 1+; PLATELET ESTIMATE DECREASED
[2024-10-07] VITALS: BP 129/59; PULSE 96; RESP 18; TEMP 36.8; O2SAT 96
[2024-10-07 04:00] VITALS: BP 122/60; PULSE 88; RESP 18; TEMP 36.8; O2SAT 100
[2024-10-07 07:22] LABS: HEMATOCRIT. 31.2 % (42.0-52.0); HEMOGLOBIN. 10.5 g/dL (14.0-18.0); MEAN CORPUSCULAR HEMOGLOBIN 34.2 pg (28.0-32.0); MEAN CORPUSCULAR HGB CONC 33.8 g/dL (31.0-37.0); MEAN CORPUSCULAR VOLUME 101.2 fL (80.0-94.0); MEAN PLATELET VOLUME 9.5 fl (7.4-10.4); PLATELET 73 x1000/uL (130-400); RED BLOOD CELL COUNT 3.08 mill/uL (4.7-6.1); RED CELL DISTRIBUTION WIDTH 17.6 % (11.6-14.6); WHITE BLOOD COUNT 7.9 x1000/uL (4.5-11.0)
[2024-10-07 07:25] LABS: CHLORIDE 99 mEq/L (98-107); POTASSIUM 5.3 mEq/L (3.5-5.1); SODIUM 134 mEq/L (136-145)
[2024-10-07 07:26] LABS: CALCIUM 9.9 mg/dL (8.7-10.4); CARBON DIOXIDE 27 mEq/L (21-32)
[2024-10-07 07:31] LABS: GLUCOSE 134 mg/dL (70-105); UREA NITROGEN BLOOD 37 mg/dL (9-23)
[2024-10-07 07:33] LABS: ALANINE AMINOTRANSFERASE 22 IU/L (10-49); ALBUMIN 3.7 g/dL (3.2-4.8); ASPARTATE AMINOTRANSFERASE 40 IU/L (<34); BILIRUBIN TOTAL 1.1 mg/dL (0.1-1.0); PROTEIN TOTAL 7.4 g/dL (6.0-8.3)
[2024-10-07 08:02] LABS: CREATININE 7.6 mg/dL (0.6-1.3)
[2024-10-07 08:14] LABS: DIFFERENTIAL COMMENT 1
[2024-10-07 12:00] VITALS: BP 116/61; PULSE 75; RESP 18; TEMP 36.7; O2SAT 98
[2024-10-07 14:02] LABS: ANISOCYTOSIS 1+; PLATELET ESTIMATE DECREASED
[2024-10-07 16:00] VITALS: BP 113/54; PULSE 78; RESP 18; TEMP 35.9; O2SAT 94
[2024-10-08] VITALS (13 sets, daily range): BP systolic 108–134; BP diastolic 51–77; PULSE 67–100; RESP 18–22; TEMP 36.5–36.6; O2SAT 96–100
[2024-10-08 06:58] LABS: CHLORIDE 102 mEq/L (98-107); POTASSIUM 5.3 mEq/L (3.5-5.1); SODIUM 136 mEq/L (136-145)
[2024-10-08 06:59] LABS: CALCIUM 8.3 mg/dL (8.7-10.4); CARBON DIOXIDE 25 mEq/L (21-32)
[2024-10-08 07:04] LABS: GLUCOSE 102 mg/dL (70-105)
[2024-10-08 07:05] LABS: UREA NITROGEN BLOOD 49 mg/dL (9-23)
[2024-10-08 07:07] LABS: PHOSPHORUS 5.2 mg/dL (2.5-4.9)
[2024-10-08 07:24] LABS: CREATININE 8.5 mg/dL (0.6-1.3)
[2024-10-08 07:59] LABS: HEMATOCRIT. 27.6 % (42.0-52.0); HEMOGLOBIN. 9.4 g/dL (14.0-18.0); MEAN CORPUSCULAR HEMOGLOBIN 34.5 pg (28.0-32.0); MEAN CORPUSCULAR HGB CONC 34.2 g/dL (31.0-37.0); MEAN CORPUSCULAR VOLUME 100.8 fL (80.0-94.0); MEAN PLATELET VOLUME 9.8 fl (7.4-10.4); PLATELET 73 x1000/uL (130-400); RED BLOOD CELL COUNT 2.74 mill/uL (4.7-6.1); RED CELL DISTRIBUTION WIDTH 17.8 % (11.6-14.6); WHITE BLOOD COUNT 7.3 x1000/uL (4.5-11.0)
[2024-10-08 08:49] LABS: DIFFERENTIAL COMMENT 1
[2024-10-08 17:21] LABS: ANISOCYTOSIS 1+; PLATELET ESTIMATE DECREASED; TEAR DROP CELLS 1+
[2024-10-08] MEDS: SODIUM ZIRCONIUM CYCLOSILICATE 10GM/PACKET PO NR (17:48)
[2024-10-08] MEDS: VANCOMYCIN 750MG/250ML 250 ML IV SCH (22:09)
[2024-10-09] VITALS: BP 126/60; PULSE 80; RESP 17; TEMP 36.6; O2SAT 96
[2024-10-09 04:00] VITALS: BP 128/62; PULSE 70; RESP 18; TEMP 36.4; O2SAT 100
[2024-10-09 06:17] LABS: HEMATOCRIT. 29.2 % (42.0-52.0); HEMOGLOBIN. 9.6 g/dL (14.0-18.0); MEAN CORPUSCULAR HEMOGLOBIN 32.7 pg (28.0-32.0); MEAN CORPUSCULAR HGB CONC 32.9 g/dL (31.0-37.0); MEAN CORPUSCULAR VOLUME 99.4 fL (80.0-94.0); MEAN PLATELET VOLUME 9.9 fl (7.4-10.4); PLATELET 88 x1000/uL (130-400); RED BLOOD CELL COUNT 2.94 mill/uL (4.7-6.1); RED CELL DISTRIBUTION WIDTH 17.7 % (11.6-14.6)
[2024-10-09 06:45] LABS: CALCIUM 9.2 mg/dL (8.7-10.4)
[2024-10-09 06:52] LABS: DIFFERENTIAL COMMENT 1
[2024-10-09 08:00] VITALS: BP 128/63; PULSE 68; RESP 20; TEMP 36.6; O2SAT 97
[2024-10-09 12:00] VITALS: BP 130/70; PULSE 71; TEMP 36.3; O2SAT 100
[2024-10-09 16:00] VITALS: BP 125/64; PULSE 67; RESP 18; TEMP 36.9; O2SAT 98
[2024-10-09 17:28] LABS: PLATELET ESTIMATE SLIGHTLY DECREASED
[2024-10-09 20:00] VITALS: BP 158/66; PULSE 109; RESP 20; TEMP 36.6; O2SAT 95
[2024-10-10 08:00] VITALS: BP 127/53; PULSE 65; RESP 17; TEMP 36.4; O2SAT 99
[2024-10-10 08:39] LABS: BASOPHILS % 0.7 % (0.0-2.0); DIFFERENTIAL COMMENT 0; EOSINOPHILS % 7.2 % (0.0-5.0); HEMATOCRIT. 31.7 % (42.0-52.0); LYMPHOCYTES % 7.2 % (20.0-50.0); MEAN CORPUSCULAR HEMOGLOBIN 31.9 pg (28.0-32.0); MEAN CORPUSCULAR HGB CONC 31.7 g/dL (31.0-37.0); MEAN CORPUSCULAR VOLUME 100.5 fL (80.0-94.0); MEAN PLATELET VOLUME 9.5 fl (7.4-10.4); MONOCYTES % 12.1 % (2.0-8.0); NEUTROPHILS % 72.8 % (40.0-76.0); PLATELET 103 x1000/uL (130-400); RED BLOOD CELL COUNT 3.15 mill/uL (4.7-6.1); RED CELL DISTRIBUTION WIDTH 18.4 % (11.6-14.6); WHITE BLOOD COUNT 6.2 x1000/uL (4.5-11.0)
[2024-10-10 08:42] LABS: CALCIUM 9.4 mg/dL (8.7-10.4); POTASSIUM 5.7 mEq/L (3.5-5.1)
[2024-10-10 10:04] LABS: CREATININE 9.4 mg/dL (0.6-1.3)
[2024-10-10 12:00] VITALS: BP 127/77; PULSE 65; RESP 18; TEMP 36.4; O2SAT 97
[2024-10-10 16:00] VITALS: BP 133/59; PULSE 68; RESP 18; TEMP 35.7; O2SAT 98
[2024-10-10 20:00] VITALS: BP 120/67; PULSE 79; RESP 16; TEMP 36.4; O2SAT 99
[2024-10-10] MEDS: METOPROLOL TARTRATE 25MG TABLET PO SCH (23:12)
[2024-10-10] MEDS: ACETAMINOPHEN 325MG TABLET PO PRN (23:33)
[2024-10-11] VITALS (13 sets, daily range): BP systolic 117–140; BP diastolic 42–86; PULSE 64–82; RESP 15–20; TEMP 35.6–36.55848; O2SAT 97–100
[2024-10-11] MEDS: HYDROCODONE/ACETAMINOPHEN 5/325MG TABLET PO NR (05:30)
[2024-10-11 08:06] LABS: BASOPHILS % 1.2 % (0.0-2.0); DIFFERENTIAL COMMENT 0; EOSINOPHILS % 6.1 % (0.0-5.0); HEMATOCRIT. 31.6 % (42.0-52.0); HEMOGLOBIN. 10.5 g/dL (14.0-18.0); LYMPHOCYTES % 7.6 % (20.0-50.0); MEAN CORPUSCULAR HEMOGLOBIN 33.6 pg (28.0-32.0); MEAN CORPUSCULAR HGB CONC 33.3 g/dL (31.0-37.0); MEAN CORPUSCULAR VOLUME 100.8 fL (80.0-94.0); MEAN PLATELET VOLUME 9.1 fl (7.4-10.4); NEUTROPHILS % 74.1 % (40.0-76.0); PLATELET 116 x1000/uL (130-400); RED BLOOD CELL COUNT 3.13 mill/uL (4.7-6.1); RED CELL DISTRIBUTION WIDTH 17.8 % (11.6-14.6)
[2024-10-11 08:23] LABS: CALCIUM 9.6 mg/dL (8.7-10.4)
[2024-10-11] MEDS ORDERED: NEBIVOLOL HCL 5 MG TABLET PO SCH (09:00)
[2024-10-11 09:42] LABS: CREATININE 10.6 mg/dL (0.6-1.3)
[2024-10-11 09:54] LABS: POTASSIUM 6.5 mEq/L (3.5-5.1)
[2024-10-11] MEDS: VANCOMYCIN 750MG/250ML IV NR (18:08)
[2024-10-12] VITALS: BP 140/61; PULSE 75; RESP 20; TEMP 36.6; O2SAT 95
[2024-10-12 04:00] VITALS: BP 159/69; PULSE 81; RESP 20; TEMP 36.2; O2SAT 98
[2024-10-12 08:00] VITALS: BP 166/82; PULSE 80; RESP 19; TEMP 36.2; O2SAT 99
[2024-10-12 08:05] LABS: POTASSIUM 5.7 mEq/L (3.5-5.1)
[2024-10-12 08:06] LABS: CALCIUM 9.6 mg/dL (8.7-10.4)
[2024-10-12 08:07] LABS: HEMATOCRIT. 29.5 % (42.0-52.0); HEMOGLOBIN. 9.8 g/dL (14.0-18.0); MEAN CORPUSCULAR HEMOGLOBIN 33.4 pg (28.0-32.0); MEAN CORPUSCULAR HGB CONC 33.1 g/dL (31.0-37.0); MEAN CORPUSCULAR VOLUME 100.8 fL (80.0-94.0); MEAN PLATELET VOLUME 8.8 fl (7.4-10.4); PLATELET 119 x1000/uL (130-400); RED BLOOD CELL COUNT 2.92 mill/uL (4.7-6.1); RED CELL DISTRIBUTION WIDTH 17.5 % (11.6-14.6); WHITE BLOOD COUNT 7.6 x1000/uL (4.5-11.0)
[2024-10-12 08:17] LABS: CREATININE 9.1 mg/dL (0.6-1.3)
[2024-10-12 08:31] LABS: DIFFERENTIAL COMMENT 1
[2024-10-12 12:00] VITALS: BP 104/52; PULSE 82; RESP 18; TEMP 36.1; O2SAT 98
[2024-10-12] MEDS: ASPIRIN 81MG TABLET PO SCH (12:33)
[2024-10-12 14:25] LABS: ANISOCYTOSIS 1+; PLATELET ESTIMATE SLIGHTLY DECREASED
[2024-10-12 16:00] VITALS: BP 149/47; PULSE 80; RESP 19; TEMP 36.1; O2SAT 100
[2024-10-12 20:00] VITALS: BP 156/77; PULSE 87; RESP 19; TEMP 35.7; O2SAT 100
[2024-10-12] MEDS: AMLODIPINE 5MG TABLET PO SCH (21:46)
[2024-10-12] MEDS: ATORVASTATIN CALCIUM 40MG TABLET PO SCH (21:46)
[2024-10-13] VITALS (15 sets, daily range): BP systolic 116–150; BP diastolic 65–88; PULSE 70–99; RESP 16–19; TEMP 35.9–36.78072; O2SAT 99–100
[2024-10-13 11:21] LABS: BASOPHILS % 1.1 % (0.0-2.0); DIFFERENTIAL COMMENT 0; EOSINOPHILS % 5.6 % (0.0-5.0); HEMATOCRIT. 29.3 % (42.0-52.0); HEMOGLOBIN. 9.6 g/dL (14.0-18.0); LYMPHOCYTES % 7.7 % (20.0-50.0); MEAN CORPUSCULAR HGB CONC 32.9 g/dL (31.0-37.0); MEAN CORPUSCULAR VOLUME 100.2 fL (80.0-94.0); MEAN PLATELET VOLUME 8.7 fl (7.4-10.4); MONOCYTES % 7.7 % (2.0-8.0); NEUTROPHILS % 77.9 % (40.0-76.0); PLATELET 133 x1000/uL (130-400); RED BLOOD CELL COUNT 2.92 mill/uL (4.7-6.1); RED CELL DISTRIBUTION WIDTH 17.6 % (11.6-14.6); WHITE BLOOD COUNT 6.4 x1000/uL (4.5-11.0)
[2024-10-13 11:43] LABS: CALCIUM 9.6 mg/dL (8.7-10.4)
[2024-10-13 11:56] LABS: CREATININE 8.5 mg/dL (0.6-1.3)
[2024-10-13] MEDS: VANCOMYCIN 750MG/250ML 250 ML IV SCH (21:45)
[2024-10-14] VITALS (13 sets, daily range): BP systolic 107–151; BP diastolic 57–83; PULSE 66–80; RESP 17–20; TEMP 36.2–36.89184; O2SAT 97–99
[2024-10-14 07:11] LABS: CALCIUM 9.5 mg/dL (8.7-10.4); POTASSIUM 5.8 mEq/L (3.5-5.1)
[2024-10-14 07:16] LABS: BASOPHILS % 0.9 % (0.0-2.0); DIFFERENTIAL COMMENT 0; EOSINOPHILS % 5.7 % (0.0-5.0); HEMATOCRIT. 30.2 % (42.0-52.0); LYMPHOCYTES % 8.1 % (20.0-50.0); MEAN CORPUSCULAR HEMOGLOBIN 33.9 pg (28.0-32.0); MEAN CORPUSCULAR HGB CONC 32.9 g/dL (31.0-37.0); MEAN CORPUSCULAR VOLUME 102.9 fL (80.0-94.0); MEAN PLATELET VOLUME 8.7 fl (7.4-10.4); MONOCYTES % 10.1 % (2.0-8.0); NEUTROPHILS % 75.2 % (40.0-76.0); PLATELET 133 x1000/uL (130-400); RED BLOOD CELL COUNT 2.94 mill/uL (4.7-6.1); WHITE BLOOD COUNT 6.6 x1000/uL (4.5-11.0)
[2024-10-14 07:19] LABS: CREATININE 9.7 mg/dL (0.6-1.3)
[2024-10-14 08:44] LABS: INR 1.2
[2024-10-14] MEDS: SODIUM ZIRCONIUM CYCLOSILICATE 10GM/PACKET PO NR (08:47)
[2024-10-14 12:17] LABS: POTASSIUM 5.8 mEq/L (3.5-5.1)
[2024-10-14] MEDS ORDERED: IODIXANOL 320MG/ML 100 ML BOTTLE IV ONE (12:44)
[2024-10-14] MEDS ORDERED: LIDOCAINE HCL 1% 20ML VIAL ONE ×2 (12:44→13:29)
[2024-10-14] MEDS ORDERED: MIDAZOLAM HCL 2 MG/2 ML VIAL ONE ×2 (13:15→13:29)
[2024-10-14] MEDS ORDERED: FENTANYL CITRATE/PF 50MCG/ML 2ML VIAL ONE (13:15)
[2024-10-14] MEDS ORDERED: HEPARIN 1000 UNITS/ML 10ML ONE ×2 (13:27→13:44)
[2024-10-14] MEDS ORDERED: ACETAMINOPHEN 325MG TABLET PO PRN (14:45)
[2024-10-14] MEDS ORDERED: ONDANSETRON HCL 4MG/2ML INJ IV PRN (14:45)
[2024-10-14] MEDS ORDERED: ATROPINE SULFATE 1MG/10ML SYR IV PRN (14:45)
[2024-10-14] MEDS: MORPHINE SULFATE 2 MG/ML INJ (NOT FOR IM USE) IV PRN (19:58)
[2024-10-15] VITALS (18 sets, daily range): BP systolic 115–140; BP diastolic 56–82; PULSE 65–85; RESP 8–20; TEMP 36.7–36.8; O2SAT 94–100
[2024-10-15] MEDS: MORPHINE SULFATE 2 MG/ML INJ (NOT FOR IM USE) IV PRN (05:31)
[2024-10-15 06:24] LABS: HEMATOCRIT. 28.7 % (42.0-52.0); HEMOGLOBIN. 9.3 g/dL (14.0-18.0); MEAN CORPUSCULAR HEMOGLOBIN 32.4 pg (28.0-32.0); MEAN CORPUSCULAR HGB CONC 32.5 g/dL (31.0-37.0); MEAN CORPUSCULAR VOLUME 99.8 fL (80.0-94.0); MEAN PLATELET VOLUME 8.4 fl (7.4-10.4); PLATELET 126 x1000/uL (130-400); RED BLOOD CELL COUNT 2.88 mill/uL (4.7-6.1); RED CELL DISTRIBUTION WIDTH 17.1 % (11.6-14.6); WHITE BLOOD COUNT 6.3 x1000/uL (4.5-11.0)
[2024-10-15 06:31] LABS: DIFFERENTIAL COMMENT 1
[2024-10-15 06:57] LABS: POTASSIUM 4.8 mEq/L (3.5-5.1)
[2024-10-15 06:58] LABS: CALCIUM 9.6 mg/dL (8.7-10.4)
[2024-10-15 07:08] LABS: CREATININE 7.7 mg/dL (0.6-1.3)
[2024-10-15] MEDS ORDERED: LIDOCAINE HCL 1% 20ML VIAL ONE (07:30)
[2024-10-15] MEDS ORDERED: IODIXANOL 320 MG/ML 150ML BOTTLE IV ONE (07:30)
[2024-10-15] MEDS ORDERED: HEPARIN 1000 UNITS/ML 10ML ONE ×2 (07:30→08:57)
[2024-10-15] MEDS ORDERED: MIDAZOLAM HCL 2 MG/2 ML VIAL ONE (07:58)
[2024-10-15] MEDS ORDERED: FENTANYL CITRATE/PF 50MCG/ML 2ML VIAL ONE ×2 (07:58→09:34)
[2024-10-15] MEDS ORDERED: ACETAMINOPHEN 325MG TABLET PO PRN (09:45)
[2024-10-15] MEDS ORDERED: ATROPINE SULFATE 1MG/10ML SYR IV PRN (09:45)
[2024-10-15] MEDS ORDERED: MORPHINE SULFATE 2 MG/ML INJ (NOT FOR IM USE) IV PRN (09:45)
[2024-10-15] MEDS: CLOPIDOGREL 75MG TABLET PO ONE (09:45)
[2024-10-15] MEDS ORDERED: ONDANSETRON HCL 4MG/2ML INJ IV PRN (09:45)
[2024-10-15] MEDS ORDERED: NALOXONE HCL 0.4MG/ML VIAL IV PRN (11:30)
[2024-10-15 15:58] LABS: ANISOCYTOSIS 1+; PLATELET ESTIMATE SLIGHTLY DECREASED
[2024-10-16] VITALS (13 sets, daily range): BP systolic 99–144; BP diastolic 59–113; PULSE 65–85; RESP 12–20; TEMP 36.3–37; O2SAT 94–100
[2024-10-16] MEDS: HYDROCODONE/ACETAMINOPHEN 10/325MG TABLET PO PRN (00:51)
[2024-10-16 06:19] LABS: BASOPHILS % 1.1 % (0.0-2.0); DIFFERENTIAL COMMENT 0; EOSINOPHILS % 4.8 % (0.0-5.0); HEMATOCRIT. 25.4 % (42.0-52.0); HEMOGLOBIN. 8.6 g/dL (14.0-18.0); MEAN CORPUSCULAR HEMOGLOBIN 33.7 pg (28.0-32.0); MEAN CORPUSCULAR HGB CONC 33.6 g/dL (31.0-37.0); MEAN CORPUSCULAR VOLUME 100.2 fL (80.0-94.0); MEAN PLATELET VOLUME 8.5 fl (7.4-10.4); MONOCYTES % 8.7 % (2.0-8.0); NEUTROPHILS % 77.4 % (40.0-76.0); PLATELET 121 x1000/uL (130-400); RED BLOOD CELL COUNT 2.54 mill/uL (4.7-6.1); RED CELL DISTRIBUTION WIDTH 18.1 % (11.6-14.6); WHITE BLOOD COUNT 5.6 x1000/uL (4.5-11.0)
[2024-10-16 06:35] LABS: POTASSIUM 5.1 mEq/L (3.5-5.1)
[2024-10-16 06:36] LABS: CALCIUM 9.3 mg/dL (8.7-10.4)
[2024-10-16 08:25] LABS: CREATININE 8.9 mg/dL (0.6-1.3)
[2024-10-16] MEDS: ASPIRIN 81MG TABLET PO SCH (08:35)
[2024-10-16] MEDS: SEVELAMER CARBONATE 800 MG TABLET PO SCH (12:39)
[2024-10-16] MEDS: CLOPIDOGREL 75MG TABLET PO SCH (12:41)
[2024-10-16] MEDS: VANCOMYCIN 750MG/150ML (BAXTER) IV NR (20:06)
[2024-10-16] MEDS: DOCUSATE SODIUM 100MG CAPSULE PO PRN (20:06)
[2024-10-17] VITALS (13 sets, daily range): BP systolic 103–151; BP diastolic 60–91; PULSE 71–81; RESP 12–30; TEMP 36.4–36.7; O2SAT 90–100
[2024-10-17] MEDS ORDERED: LIDOCAINE HCL 1% 10 MG/ML 10ML VIAL ONE (06:50)
[2024-10-17 08:38] LABS: POTASSIUM 4.7 mEq/L (3.5-5.1)
[2024-10-17 08:39] LABS: BASOPHILS % 1.2 % (0.0-2.0); CALCIUM 9.7 mg/dL (8.7-10.4); EOSINOPHILS % 4.8 % (0.0-5.0); HEMATOCRIT. 26.7 % (42.0-52.0); LYMPHOCYTES % 8.6 % (20.0-50.0); MEAN CORPUSCULAR HEMOGLOBIN 33.6 pg (28.0-32.0); MEAN CORPUSCULAR HGB CONC 33.7 g/dL (31.0-37.0); MEAN CORPUSCULAR VOLUME 99.6 fL (80.0-94.0); MEAN PLATELET VOLUME 8.9 fl (7.4-10.4); NEUTROPHILS % 75.4 % (40.0-76.0); PLATELET 111 x1000/uL (130-400); RED BLOOD CELL COUNT 2.68 mill/uL (4.7-6.1); RED CELL DISTRIBUTION WIDTH 17.6 % (11.6-14.6); WHITE BLOOD COUNT 6.2 x1000/uL (4.5-11.0)
[2024-10-17 08:56] LABS: CREATININE 8.1 mg/dL (0.6-1.3)
[2024-10-17] MEDS: VANCOMYCIN 750MG PREMIX 150 ML IV SCH (22:04)
[2024-10-18] VITALS: BP 160/93; PULSE 60; RESP 14; TEMP 36.6; O2SAT 100
[2024-10-18 04:00] VITALS: BP 178/82; PULSE 76; RESP 19; TEMP 36.6; O2SAT 100
[2024-10-18] MEDS: CLONIDINE 0.1MG TABLET PO PRN (05:21)
[2024-10-18 08:00] VITALS: BP 114/95; PULSE 80; RESP 15; TEMP 36.4; O2SAT 100
[2024-10-18] MEDS: ENOXAPARIN 30MG/0.3ML SYR SUBCUT SCH (08:53)
[2024-10-18] MEDS ORDERED: CLOP-31 PO (11:47)
[2024-10-18] MEDS ORDERED: ASPI-1160 PO (11:47)
[2024-10-18] MEDS ORDERED: METO25TA6 PO (11:47)
[2024-10-18] MEDS ORDERED: AMLO5TAB88 PO (11:47)
[2024-10-18 12:00] VITALS: BP 115/78; PULSE 64; RESP 13; TEMP 36.8; O2SAT 98
[2024-10-18 12:16] VITALS: BP 115/78; PULSE 64; TEMP 98.3; O2SAT 98
== END 2024-10-18 17:52 | disposition home health service (06) | DRG 853 ==
LOC: ER 14:09 → EDBEDREQTM 17:17 → EDBEDREQ 17:17 → 6EST 20:05 → 8WST 10-14 17:11 → 3WST 10-15 10:14
PROVIDERS: ADMIT Internal Medicine; ATTEND Internal Medicine
PROC: 5A1D70Z Performance of Urinary Filtration, Intermittent, Less than 6 Hours Per Day (ICD-10-PCS; 2024-10-06)
PROC: 5A1D70Z Performance of Urinary Filtration, Intermittent, Less than 6 Hours Per Day (ICD-10-PCS; 2024-10-08)
PROC: 5A1D70Z Performance of Urinary Filtration, Intermittent, Less than 6 Hours Per Day (ICD-10-PCS; 2024-10-11)
PROC: 5A1D70Z Performance of Urinary Filtration, Intermittent, Less than 6 Hours Per Day (ICD-10-PCS; 2024-10-13)
PROC: B41G1ZZ Fluoroscopy of Left Lower Extremity Arteries using Low Osmolar Contrast (ICD-10-PCS; 2024-10-14)
PROC: B41F1ZZ Fluoroscopy of Right Lower Extremity Arteries using Low Osmolar Contrast (ICD-10-PCS; 2024-10-14)
PROC: 5A1D70Z Performance of Urinary Filtration, Intermittent, Less than 6 Hours Per Day (ICD-10-PCS; 2024-10-14)
PROC: 04FL3ZZ Fragmentation of Left Femoral Artery, Percutaneous Approach (ICD-10-PCS; principal; 2024-10-15)
PROC: B41G1ZZ Fluoroscopy of Left Lower Extremity Arteries using Low Osmolar Contrast (ICD-10-PCS; 2024-10-15)
PROC: 5A1D70Z Performance of Urinary Filtration, Intermittent, Less than 6 Hours Per Day (ICD-10-PCS; 2024-10-16)
PROC: 05HY33Z Insertion of Infusion Device into Upper Vein, Percutaneous Approach (ICD-10-PCS; 2024-10-17)
PROC: B54MZZA Ultrasonography of Right Upper Extremity Veins, Guidance (ICD-10-PCS; 2024-10-17)
PROC: B51M1ZZ Fluoroscopy of Right Upper Extremity Veins using Low Osmolar Contrast (ICD-10-PCS; 2024-10-17)
PROC: 5A1D70Z Performance of Urinary Filtration, Intermittent, Less than 6 Hours Per Day (ICD-10-PCS; 2024-10-17)
DX: A41.9 Sepsis, unspecified organism (principal); N18.6 End stage renal disease; T87.44 Infection of amputation stump, left lower extremity; L03.116 Cellulitis of left lower limb; E87.1 Hypo-osmolality and hyponatremia; M86.9 Osteomyelitis, unspecified; T81.30XA Disruption of wound, unspecified, initial encounter; M86.8X7 Other osteomyelitis, ankle and foot; L02.612 Cutaneous abscess of left foot; E87.5 Hyperkalemia; E11.22 Type 2 diabetes mellitus with diabetic chronic kidney disease; E11.51 Type 2 diabetes mellitus with diabetic peripheral angiopathy without gangrene; D53.9 Nutritional anemia, unspecified; I25.10 Atherosclerotic heart disease of native coronary artery without angina pectoris; D69.6 Thrombocytopenia, unspecified; E66.01 Morbid (severe) obesity due to excess calories; E11.621 Type 2 diabetes mellitus with foot ulcer; E11.628 Type 2 diabetes mellitus with other skin complications; G47.33 Obstructive sleep apnea (adult) (pediatric); L97.529 Non-pressure chronic ulcer of other part of left foot with unspecified severity; E87.70 Fluid overload, unspecified; E11.69 Type 2 diabetes mellitus with other specified complication; I49.5 Sick sinus syndrome; E11.21 Type 2 diabetes mellitus with diabetic nephropathy; I12.9 Hypertensive chronic kidney disease with stage 1 through stage 4 chronic kidney disease, or unspecified chronic kidney disease; B95.61 Methicillin susceptible Staphylococcus aureus infection as the cause of diseases classified elsewhere; E78.5 Hyperlipidemia, unspecified; Z85.038 Personal history of other malignant neoplasm of large intestine; Z89.431 Acquired absence of right foot; Z79.4 Long term (current) use of insulin; Z95.1 Presence of aortocoronary bypass graft; Z99.2 Dependence on renal dialysis; Z79.02 Long term (current) use of antithrombotics/antiplatelets; Z79.82 Long term (current) use of aspirin; Z79.899 Other long term (current) drug therapy; Z90.49 Acquired absence of other specified parts of digestive tract; Z95.0 Presence of cardiac pacemaker; Z88.8 Allergy status to other drugs, medicaments and biological substances; Z68.38 Body mass index [BMI] 38.0-38.9, adult; Z82.49 Family history of ischemic heart disease and other diseases of the circulatory system; Y83.5 Amputation of limb(s) as the cause of abnormal reaction of the patient, or of later complication, without mention of misadventure at the time of the procedure; Y92.89 Other specified places as the place of occurrence of the external cause
CPT/HCPCS: 36245; 36415; 36573; 37224; 71045; 73590; 73610; 73630; 73701; 75710; 80048; 80053; 80061; 80202; 82607; 82746; 82962; 83036; 83605; 83735; 84100; 84132; 84145; 85025; 85347; 85651; 86705; 86709; 87077; 87186; 87340; 90935; 93005; 93306; 93970; 97162; 97535; 99285; A4606; C1725; C1769; C1887; C1893; C1894; J1644; J1650; J1815; J2003; J2250; J2270; J2543; J3010; J3370; J3490; J7030; Q9967